=== PATIENT | female | born 1965 | race African-American/Black ===

== ENCOUNTER 2019-05-15 20:41 | Observation (INO) | payer OTHER, SELFPAY ==
--- NOTE | ~2019-05-15 | US_ITS ---
EXAMINATION:US venous doppler LE BI INDICATION:Lymphedema. Calf pain. TECHNIQUE: Multiple grayscale, color flow and Doppler images of the lower extremity deep venous syste ms were obtained and reviewed. COMPARISON:No prior studies for comparison. FINDINGS: The common femoral, profunda femoral femoral and popliteal veins demonstrate normal respira tory variation, augmentation and compressibility. The middistal femoral veins are not visualized due to skin thickening. There is normal flow in the greater saphenous veins. The posterior tibial, perone al and gastrocnemius veins are not visualized. IMPRESSION: 1: No lower extremity deep venous thrombosis. Limited study. Reviewed, dictated and finalized at location A. CULTURE INSPECTOR
[2019-05-15 20:54] VITALS: BP 169/102; PULSE 108; RESP 22; TEMP 36.8; O2SAT 100
--- NOTE | 2019-05-15 21:58 | PC.NURSE ---
PT CONTINUES TO SCREAM IN WAITING ROOM IM IN PAIN HOW MUCH LONGER PT TOLD MULTIPLE TIMES THAT SHE HAS MULTIPLE PEOPLE IN FRONT OF HER. PT CONTINUES TO YELL.
--- NOTE | 2019-05-15 22:37 | PC.NURSE ---
PT FAMILY UP TO DESK REQUESTING PATIENT GET TAKEN TO A ROOM AT THIS TIME.
--- NOTE | 2019-05-15 23:16 | ED.GENADULT ---
HPI - General Adult General Chief complaint: Extremity Injury, Lower <Kenzie Hall PA-C - Last Filed: 05/16/19 02:25> Stated complaint: LEG PAIN <JESÚS Norton Last Filed: 05/16/19 02:25> Time Seen by Provider: 05/15/19 23:16 <JESÚS Norton Last Filed: 05/16/19 02:25> Source: patient and family <JESÚS Norton Last Filed: 05/16/19 02:25> Mode of arrival: ambulatory <JESÚS Norton Last Filed: 05/16/19 02:25> Limitations: no limitations <JESÚS Norton Last Filed: 05/16/19 02:25> History of Present Illness HPI narrative: Pt is here due to extreme pain in her lower extremities. Over the past year she has developed significant lymphedema, the left leg more so than the right. There is significant lichenfication of both lower legs and feet. She states that the pain is such that she can no longer stand or walk. She was working until a couple months ago. She has been seen by vendor specialist at [facility], she has had venous dopplers done by them and ruled out DVT. She has an appointment with the lymphedema clinic here, she has another appointment with them on May 27. She has been taking Ibuprofen for the pain. She describes the pain as electric . There is also intermittent weeping of the left calf. <JESÚS Norton Last Filed: 05/16/19 02:25> Onset (ago): month(s) (more severe in the past week.) <JESÚS Norton Last Filed: 05/16/19 02:25> Location: lower extremity (bilat) <JESÚS Norton Last Filed: 05/16/19 02:25> Radiation: non-radiation <JESÚS Norton Last Filed: 05/16/19 02:25> Quality: burning <JESÚS Norton Last Filed: 05/16/19 02:25> Pain Consistency: constant <Kenzie Hall PA-C - Last Filed: 05/16/19 02:25> Relieving factors: none <Kenzie Hall PA-C - Last Filed: 05/16/19 02:25> Exacerbating factors: movement <Kenzie Hall PA-C - Last Filed: 05/16/19 02:25> Associated symptoms: denies other symptoms <Kenzie Hall PA-C - Last Filed: 05/16/19 02:25> Treatments prior to arrival: NSAID <Kenzie Hall PA-C - Last Filed: 05/16/19 02:25> Related Data Home medications: Home Medications Medication Instructions Recorded Confirmed metoprolol tartrate 50 mg tablet 50 mg PO Q12H 03/10/19 <Kenzie Hall PA-C - Last Filed: 05/16/19 02:25> Allergies/adverse reactions: Allergies Allergy/AdvReac Type Severity Reaction Status Date / Time lisinopril Allergy Unknown Unknown Verified 03/28/19 09:39 naproxen Allergy Unknown Unknown Verified 03/28/19 09:39 prednisone Allergy Unknown Unknown Verified 03/28/19 09:39 <Kenzie Hall PA-C - Last Filed: 05/16/19 02:25> Review of Systems Review of Systems: All systems reviewed & are unremarkable except as noted in HPI and below <Kenzie Hall PA-C - Last Filed: 05/16/19 02:25> [facility] Family History Family History: Family History Grandparent Family history of bronchitis Family history of coronary artery disease Mother Hypertension, Onset Age: 71 Family history of diabetes mellitus in first degree relative Patient's mother is in good health Family history of Alzheimer's disease, Onset Age: 71 Diabetes mellitus, Onset Age: 71 Father Family history unknown Other Asthma <Kenzie Hall PA-C - Last Filed: 05/16/19 02:25> Social History Social History: Social History Smoking status: Never smoker Second hand tobacco smoke exposure: No Alcohol intake: never Gender identity (if verbalized by the patient): Female <Kenzie Hall PA-C - Last Filed: 05/16/19 02:25> Exam Const: General: no acute distress and alert <Kenzie Hall PA-C - Last Filed: 05/16/19 02:25> Orientation/consciousness: p
[2019-05-16] VITALS (8 sets, daily range): BP systolic 122–195; BP diastolic 50–88; PULSE 92–117; RESP 17–20; TEMP 36.3–37.6; O2SAT 99–101; BMI 70.1
[2019-05-16 00:55] LABS: Basophils Percent Auto 0.4 % (0.2-1.2); Eosinophils Absolute Auto 0.4 K/mm3 (0-0.3); Eosinophils Percent Auto 3.7 % (0-4.4); Hematocrit 40.5 % (37.0-47.0); Hemoglobin 12.1 g/dL (12.0-15.0); Immature Granulocyte Absolute 0.03 K/mm3 (0.00-0.031); Immature Granulocyte Percent A 0.3 % (0-0.5); Lymphocytes Absolute Auto 1.84 K/mm3 (0.9-3.2); Lymphocytes Percent Auto 16.3 % (18.3-44.2); Mean Corpuscular HGB Conc 29.9 g/dl (32-36); Mean Corpuscular Hemoglobin 24.7 pg (26-34); Mean Corpuscular Volume 82.8 fl (80-100); Mean Platelet Volume 10.6 fl (7.4-10.4); Monocytes Absolute Auto 0.6 K/mm3 (0.1-0.6); Monocytes Percent Auto 5.7 % (2.6-8.5); Neutrophils Absolute Auto 8.4 K/mm3 (1.3-6.7); Neutrophils Percent Auto 73.6 % (45.5-73.1); Platelet Count Result 344 k/mm3 (150-375); Red Blood Count 4.89 M/mm3 (4.2-5.4); Red Cell Distribution Width 13.9 % (11.5-14.5); White Blood Count 11.3 K/mm3 (4.5-10.0)
[2019-05-16 01:06] LABS: Blood Urea Nitrogen 9 mg/dL (7-17); Carbon Dioxide 27 mmol/L (22-30); Chloride 105 mmol/L (98-107); Estimated CRCL calculation 162 ml/min; Estimated Glomerular Filt Rate > 60; Glucose 102 mg/dL (65-105); Potassium 3.3 mmol/L (3.4-5.0); Sodium 142 mmol/L (137-145)
--- NOTE | 2019-05-16 04:32 | ADMGEN ---
This patient, Dulce Maria Brush, was admitted to [facility] Room 309-01. Patient/family oriented to hospital policies and general routines including ID bracelet, bed and alarms, visiting hours, pain management, procedures, bathroom and other care routines, personal items, smoking policy, room service/diet, and visiting hours. Valuables list has been completed. Information on how to activate the Rapid Response Team has been discussed. Patient/Family are encouraged to report perceived risks to care and to ask questions if they do not understand what they are told or what they should do.
[2019-05-16 07:38] LABS: Glucose Point of Care 132 (65-105)
[2019-05-16] MEDS: glyBURIDE 5 MG TABLET 10 MG PO ×2 (08:49→17:21)
[2019-05-16] MEDS: POTASSIUM CHLORIDE 20 MEQ TABLET 40 MEQ PO (08:49)
[2019-05-16] MEDS: hydroCHLOROthiazide 25 MG TABLET PO (08:49)
[2019-05-16] MEDS: metFORMIN HCL 500 MG TABLET 1000 MG PO (08:49)
[2019-05-16] MEDS: METOPROLOL TARTRATE 50 MG TAB PO ×2 (08:51→21:05)
--- NOTE | 2019-05-16 08:56 | PM.IMHP ---
H&P: HPI History of Present Illness Chief complaint: LYMPHEDEMA Narrative: Dulce Maria Brush is a 53 year old female with history of chronic b/l lower extremity lymphedema with skin changes in both legs (left more than right), hypertension, anxiety and DMII who presented to the ED on 05/15 with complaints of worsening lower extremity pain. Patient states her lower extremity swelling started several years ago, off an on, but last year, it progressively worsened. She saw her primary in 02/2019 for worsened lymphedema and pain and was subsequently sent to [facility] for further input on lymphedema. From there, she was sent to a mental health program specialist, and while there, patient was told that there was no wound to treat. She states that she was set up with a lymphedema specialist and had an appointment yesterday but it was rescheduled to 05/27 due to staffing issues. She had also seen a activity specialist for her pain which she describes as sharp and shooting pain in her feet and legs which she thought was neuropathic pain from her diabetes. States the activity specialist told felt that this was mainly due to lymphedema and not neuropathy and did not prescribe any medication. Her pain has progressively worsened over the past several weeks to a point yesterday that she could not even stand or walk on her feet (she normally ambulates without a walker). She rated the pain a 10/10 at its worse, 9/10 today after pain medication but states the pain is significantly better today with the [place] pain medication prescribed by the ED. While in the ED, patient reports she was told that she will be given antibiotics and have the lymphedema clinic consulted here to see her. Patient states she has difficulty ambulating recently due to pain and with worsening lymphedema. She has tried ibuprofen and Tylenol both with no relief. Ambulation/moving extremities makes pain worse. Otherwise, patient has no other complaints. Denies f/c/ns, headaches, dizziness, lightheadedness, changes in v/h, cp/palpitations, sob/cough, n/v/d/c, abd pain, dysphagia, melena, brbpr, dysuria, hematuria, cloudy urine, s/sx of stroke Review of Systems Review of Systems: All systems reviewed & are unremarkable except as noted in HPI and below [facility] Past Medical History Medical History (Updated 05/16/19 @ 09:56 by Vini Desir PA-C) Anxiety Diabetes Hiatal hernia HTN (hypertension) Left calcaneal fracture Morbid obesity Vitamin D deficiency Surgical History Surgical History History of x2 Family History Family History Grandparent Family history of bronchitis Family history of coronary artery disease Mother Hypertension, Onset Age: 71 Family history of diabetes mellitus in first degree relative Patient's mother is in good health Family history of Alzheimer's disease, Onset Age: 71 Diabetes mellitus, Onset Age: 71 Father Family history unknown Other Asthma Social History Social History Social History: Patient lives at home with her 2 children. She lists her aunt, Debbie, as her surrogate MDM. She wishes to be a Full Code. Her PCP is Dr. Márquez. She has been limited in work due to her worsening lymphedema/pain Smoking status: Never smoker Second hand tobacco smoke exposure: No Alcohol intake: never Substance use: never Gender identity (if verbalized by the patient): Female Spiritual care concerns: No Agree to blood products: Yes Meds Home Medications and Allergies Home Medications Medication Instructions Recorded Confirmed Type glyburide 5 mg tablet 10 mg PO BID #360 tablet 02/18/19 05/16/19 Rx metformin 1,000 mg tablet 1,000 mg PO BID #180 tablet 02/25/19 05/16/19 Rx metoprolol tartrate 50 mg tablet 50 mg PO Q12H 03/10/19 05/16/19 History medroxyprogesteron
[2019-05-16] MEDS: TOLNAFTATE 1% POWDER 45 GM BTL 1 APPLIC TOPICAL ×4 (11:16→21:07)
[2019-05-16] MEDS: ENOXAPARIN 40 MG/0.4 ML SYRINGE SUB-Q (11:17)
[2019-05-16 12:20] LABS: Glucose Point of Care 134 (65-105)
[2019-05-16] MEDS: LACTIC ACID 12% LOTION 225 BTL 1 APPLIC TOPICAL (13:03)
[2019-05-16] MEDS: GABAPENTIN 300 MG CAPSULE PO ×2 (13:11→21:05)
[2019-05-16 17:29] LABS: Glucose Point of Care 90 (65-105)
[2019-05-16 21:46] LABS: Glucose Point of Care 117 (65-105)
[2019-05-17] MEDS: GABAPENTIN 300 MG CAPSULE PO ×3 (05:57→20:43)
[2019-05-17 06:00] VITALS: BP 112/57; PULSE 100; RESP 20; TEMP 36.9; O2SAT 97
[2019-05-17 06:30] LABS: Basophils Percent Auto 0.2 % (0.2-1.2); Eosinophils Absolute Auto 0.2 K/mm3 (0-0.3); Eosinophils Percent Auto 2.7 % (0-4.4); Hematocrit 36.1 % (37.0-47.0); Hemoglobin 10.8 g/dL (12.0-15.0); Immature Granulocyte Absolute 0.03 K/mm3 (0.00-0.031); Immature Granulocyte Percent A 0.4 % (0-0.5); Lymphocytes Absolute Auto 2.47 K/mm3 (0.9-3.2); Lymphocytes Percent Auto 30.8 % (18.3-44.2); Mean Corpuscular HGB Conc 29.9 g/dl (32-36); Mean Corpuscular Hemoglobin 24.9 pg (26-34); Mean Corpuscular Volume 83.2 fl (80-100); Mean Platelet Volume 10.5 fl (7.4-10.4); Monocytes Absolute Auto 0.6 K/mm3 (0.1-0.6); Monocytes Percent Auto 7.9 % (2.6-8.5); Neutrophils Absolute Auto 4.6 K/mm3 (1.3-6.7); Platelet Count Result 311 k/mm3 (150-375); Red Blood Count 4.34 M/mm3 (4.2-5.4)
[2019-05-17 06:48] LABS: Blood Urea Nitrogen 7 mg/dL (7-17); Calcium 8.3 mg/dL (8.4-10.2); Carbon Dioxide 27 mmol/L (22-30); Chloride 105 mmol/L (98-107); Estimated CRCL calculation 187 ml/min; Estimated Glomerular Filt Rate > 60; Glucose 84 mg/dL (65-105); Potassium 3.4 mmol/L (3.4-5.0); Sodium 138 mmol/L (137-145)
[2019-05-17 07:16] LABS: Glucose Point of Care 80 (65-105)
[2019-05-17] MEDS: TOLNAFTATE 1% POWDER 45 GM BTL 1 APPLIC TOPICAL ×4 (09:00→20:46)
[2019-05-17 09:33] VITALS: BP 142/62; PULSE 104; RESP 18; O2SAT 97
[2019-05-17] MEDS: POTASSIUM CHLORIDE 20 MEQ TABLET 40 MEQ PO (09:36)
[2019-05-17 09:37] VITALS: PULSE 104
[2019-05-17] MEDS: hydroCHLOROthiazide 25 MG TABLET PO (09:37)
[2019-05-17] MEDS: glyBURIDE 5 MG TABLET 10 MG PO ×2 (09:37→18:24)
[2019-05-17] MEDS: ENOXAPARIN 40 MG/0.4 ML SYRINGE SUB-Q (09:37)
[2019-05-17] MEDS: METOPROLOL TARTRATE 50 MG TAB PO ×2 (09:37→20:43)
[2019-05-17 12:25] LABS: Glucose Point of Care 90 (65-105)
[2019-05-17 14:00] VITALS: BP 154/57; PULSE 101; RESP 18; TEMP 37.5; O2SAT 95
[2019-05-17] MEDS: LACTIC ACID 12% LOTION 225 BTL 1 APPLIC TOPICAL (14:32)
--- NOTE | 2019-05-17 15:44 | PM.IMPN ---
Progress Note: A&P Assessment and Plan (1) Lymphedema of both lower extremities: Code(s): I89.0 - Lymphedema, not elsewhere classified Status: Acute Assessment and Plan: With severe hyperkeratosis of skin of lower legs to feet. Severe pain with ambulation upon arrival, but this has been improved with Gabapentin per patient; able to tolerate standing with PT/OT today; she believes there is improvement. I do not believe there is an underlying bacterial infection. Possible fungal infection. Afebrile and mild leukocytosis resolved wtih WBC to 8.0k today. BC negative to date Wound Care consulted and greatly appreciate input. Lac-hydrin and tolnaftate powder ordered per Wound Care Continue gabapentin as this seems to be helping with pain. Will put in discharge orders tonight as I believe she is medically stable for discharge, however, there are psychosocial issues delaying discharge. Will follow patient tomorrow if still here Follow up with PCP and lymphedema clinic (2) HTN (hypertension): Qualifiers: Hypertension type: essential hypertension Qualified Code(s): I10 - Essential (primary) hypertension Code(s): I10 - Essential (primary) hypertension Status: Acute Assessment and Plan: BP 140s sys this morning. Monitor closely Continue home medication hydralazine PRN with parameters (3) Diabetes: Code(s): E11.9 - Type 2 diabetes mellitus without complications Status: Acute Assessment and Plan: BGL low 80-90s today. Continue home glyburide Hold metformin for now correctional insulin, hypoglycemia protocol, and ACHS accuchecks Monitor (4) Hypokalemia: Code(s): E87.6 - Hypokalemia Status: Acute Assessment and Plan: K is 3.4 today. Potassium replaced. No cp/palpitations Trend tomorrow Will consider discharging with potassium supplement Subjective Date/time seen: 05/17/19 15:44 Interval history: Patient is a 53 yo F with history of chronic b/l lower extremity lymphedema with skin changes in both legs (left more than right), hypertension, anxiety and DMII here for treatment of hyperkeratosis, severe lower leg pain 2/2 chronic lymphedema. Patient is doing better today. She states the gabapentin is helping with her pain. She states her swelling is also improving with the HCTZ. She thinks the lac-hydrin is helping with the hyperkeratosis as well. She is not back to baseline, but was able to stand up today with PT/OT. She reports a dry cough today. Otherwise no complaints. Denies f/c/ns, headaches, dizziness, lightheadedness, changes in v/h, cp/palpitations, sob, n/v/d/c, abd pain, dysphagia, melena, brbpr, dysuria, hematuria, cloudy urine, s/sx of stroke Review of Systems Review of Systems: All systems reviewed & are unremarkable except as noted in HPI and below Exam Narrative: Exam Narrative: Patient lying in semi-escobar's position at time of visit Const: General: comfortable, no acute distress, well developed and alert Orientation/consciousness: patient oriented x3 HENMT: Head: normocephalic and atraumatic General nose exam: Normal external nose present Face and sinus: face symmetric Mouth: Yes lip normal and Yes moist mucous membranes Throat: posterior oropharynx normal and uvula midline Eyes: General: appearance normal, both eyes and all related structures Sclera: sclerae normal Pupils: Equal, round and reactive pupils present EOM: EOMs intact bilaterally Neck: Neck: trachea midline and supple Resp: Effort & Inspection: normal respiratory effort Auscultation: clear to auscultation bilaterally Cardio: Rate: tachycardic Rhythm: regular rhythm GI: Inspection: non-distended and obesity Auscultation: normal bowel sounds and normoactive bowel sounds Skin: Other: Severe hyper
[2019-05-17 16:56] LABS: Glucose Point of Care 97 (65-105)
--- NOTE | 2019-05-17 17:50 | PM.DS ---
DS: Diagnosis Admitting Diagnosis Admitting Diagnosis: Lymphedema, not elsewhere classified Discharge Diagnosis (1) Lymphedema of both lower extremities: Code(s): I89.0 - Lymphedema, not elsewhere classified Status: Acute Assessment and Plan: With severe hyperkeratosis of skin of lower legs to feet. Severe pain with ambulation upon arrival, but this has been improved with Gabapentin per patient; able to tolerate standing with PT/OT today; she believes there is improvement. I do not believe there is an underlying bacterial infection. Possible fungal infection. Afebrile and mild leukocytosis resolved with WBC to 6.8k today. BC negative to date. Venous Doppler today are negative Wound Care consulted and greatly appreciate input. Lac-hydrin and tolnaftate powder ordered per Wound Care Continue gabapentin as this seems to be helping with pain. Social issues delaying discharge Follow up with PCP and lymphedema clinic (2) HTN (hypertension): Qualifiers: Hypertension type: essential hypertension Qualified Code(s): I10 - Essential (primary) hypertension Code(s): I10 - Essential (primary) hypertension Status: Acute Assessment and Plan: BP 140s sys this morning. Monitor closely Continue home medication hydralazine PRN with parameters (3) Diabetes: Code(s): E11.9 - Type 2 diabetes mellitus without complications Status: Acute Assessment and Plan: BGL low 80-90s today. Continue home glyburide Resume metformin correctional insulin, hypoglycemia protocol, and ACHS accuchecks during stay (4) Hypokalemia: Code(s): E87.6 - Hypokalemia Status: Acute Assessment and Plan: K is 3.4 today. Potassium replaced. No cp/palpitations Discharge with potassium supplement BMP in 1 week f/u with PCP (5) Discharge planning issues: Code(s): Z02.9 - Encounter for administrative examinations, unspecified Status: Acute Assessment and Plan: I believe patient is medically stable for discharge home with HH. Patient did not wish to return home yesterday as she had no one to help at home. Spoke with CC and she will be having HH on Sunday. DS: Summary Hospital Course Reason for hospitalization: Evaluation for worsened pain with lymphedema; r/o cellulitis Date of Discharge is 05/18/19 at roughly 15:45 Hospital Course: Patient is a 53 yo F with history of chornic LE lymphedema with skin changes in both legs (left more than right), hypertension, anxiety and DMII who presented to the ED on 05/15 with complaints of worsening lower extremity pain. Patient was to have an appointment at the lymphedema clinic on 05/27, but was unable to tolerate the pain long enough to make it to the clinic. Her pain was sharp and shooting and in her feet and legs. In the ED, there was concern for infection/cellulitis. Hyperkeratosis of skin was noted. Please see H&P for further details. Presenting VS: BP 169/102, HR 108, RR 22, temp 98.2, sat 100% RA Presenting Pertinent labs: WBC 11.3 (05/18 6.8), K 3.3. CBC and BMP otherwise unremarkable. Micro: BC negative to date x 2 as of 05/21 Imagin/2 LE venous Doppler b/l IMPRESSION: 1: No lower extremity deep venous thrombosis. Limited study. ECG: none Patient was admitted to the hospitalist service for further evaluation; Wound care was consulted for further input on skin changes of LE. She was started on Gabapentin 300 mg TID for the pain which she stated helped with the pain. It was felt that the legs were not infected and Wound Care initiatied lac-hydrin ointment for the hyperkeratosis of the LE skin. She was also started on tolnaftate powder and Aloe [place]. Venous Doppler was negative for LE DVT. It was determined that there was not an acute issues for patient to be admitted
[2019-05-17 20:43] VITALS: PULSE 80
[2019-05-17 21:38] VITALS: BP 148/63; PULSE 105; RESP 20; TEMP 36.9; O2SAT 96
[2019-05-18 01:23] LABS: Glucose Point of Care 140 (65-105)
[2019-05-18] MEDS: GABAPENTIN 300 MG CAPSULE PO ×2 (05:26→14:17)
[2019-05-18 06:00] VITALS: BP 151/81; PULSE 96; RESP 20; TEMP 37.1; O2SAT 99
[2019-05-18 06:09] LABS: Basophils Percent Auto 0.3 % (0.2-1.2); Eosinophils Absolute Auto 0.3 K/mm3 (0-0.3); Eosinophils Percent Auto 4.1 % (0-4.4); Hematocrit 34.6 % (37.0-47.0); Hemoglobin 10.4 g/dL (12.0-15.0); Immature Granulocyte Absolute 0.03 K/mm3 (0.00-0.031); Immature Granulocyte Percent A 0.4 % (0-0.5); Lymphocytes Absolute Auto 1.74 K/mm3 (0.9-3.2); Lymphocytes Percent Auto 25.7 % (18.3-44.2); Mean Corpuscular HGB Conc 30.1 g/dl (32-36); Mean Corpuscular Volume 83.2 fl (80-100); Mean Platelet Volume 10.6 fl (7.4-10.4); Monocytes Absolute Auto 0.5 K/mm3 (0.1-0.6); Neutrophils Absolute Auto 4.2 K/mm3 (1.3-6.7); Neutrophils Percent Auto 62.5 % (45.5-73.1); Platelet Count Result 303 k/mm3 (150-375); Red Blood Count 4.16 M/mm3 (4.2-5.4); White Blood Count 6.8 K/mm3 (4.5-10.0)
[2019-05-18 06:23] LABS: Blood Urea Nitrogen 6 mg/dL (7-17); Calcium 8.3 mg/dL (8.4-10.2); Carbon Dioxide 28 mmol/L (22-30); Chloride 103 mmol/L (98-107); Estimated CRCL calculation 221 ml/min; Estimated Glomerular Filt Rate > 60; Glucose 124 mg/dL (65-105); Potassium 3.3 mmol/L (3.4-5.0); Sodium 139 mmol/L (137-145)
[2019-05-18 08:19] LABS: Glucose Point of Care 95 (65-105)
[2019-05-18 08:30] VITALS: BP 147/82; PULSE 95; RESP 18; O2SAT 96
[2019-05-18] MEDS: glyBURIDE 5 MG TABLET 10 MG PO (08:33)
[2019-05-18] MEDS: POTASSIUM CHLORIDE 20 MEQ TABLET 40 MEQ PO (08:33)
[2019-05-18 08:34] VITALS: PULSE 95
[2019-05-18] MEDS: hydroCHLOROthiazide 25 MG TABLET PO (08:34)
[2019-05-18] MEDS: ENOXAPARIN 40 MG/0.4 ML SYRINGE SUB-Q (08:34)
[2019-05-18] MEDS: METOPROLOL TARTRATE 50 MG TAB PO (08:34)
[2019-05-18 11:43] LABS: Glucose Point of Care 135 (65-105)
[2019-05-18] MEDS: TOLNAFTATE 1% POWDER 45 GM BTL 1 APPLIC TOPICAL ×2 (14:17→14:18)
[2019-05-18] MEDS: LACTIC ACID 12% LOTION 225 BTL 1 APPLIC TOPICAL (14:17)
--- NOTE | 2019-05-18 15:42 | PC.NURSE ---
Patient transported home by [facility]. Patient's IV was removed, home medication returned, patients discharge instructions discussed with patient and the patient verbalized understanding. Patient refused flu shot upon discharge.
--- NOTE | 2019-05-18 15:46 | PC.NURSE ---
Discharge instructions faxed to home health facility.
== END 2019-05-18 15:25 | disposition home health service (06) ==
LOC: ANHED 05-16 02:21 → ANH3MEDSUR 05-16 03:00
PROVIDERS: Physician Assistant; Admitting Provider Family Medicine; Emergency Provider Emergency Medicine; PCP Internal Medicine; Visit Provider Internal Medicine
DX: I89.0 Lymphedema, not elsewhere classified (principal); M79.669 Pain in unspecified lower leg; L85.9 Epidermal thickening, unspecified; I10 Essential (primary) hypertension; E11.9 Type 2 diabetes mellitus without complications; E87.6 Hypokalemia; F41.9 Anxiety disorder, unspecified; E66.01 Morbid (severe) obesity due to excess calories; Z68.45 Body mass index [BMI] 70 or greater, adult; Z79.84 Long term (current) use of oral hypoglycemic drugs; Z79.899 Other long term (current) drug therapy
CPT/HCPCS: 36415; 80048; 83735; 85025; 87040; 93970; 96372; 97110; 97162; 97166; 97530; 99285; A9270; G0378; G0379; J1650

== ENCOUNTER 2019-06-02 10:31 | Emergency (ER) | payer OTHER, SELFPAY ==
[2019-06-02] VITALS (9 sets, daily range): BP systolic 130–174; BP diastolic 63–87; PULSE 80–102; RESP 16–20; TEMP 36.4–37.6; O2SAT 97–100; BMI 10.0
--- NOTE | ~2019-06-02 | XR_ITS ---
XR knee LT min 4V 06/02/2019 14:50 Indication: Left knee pain Procedure: 4 views left knee Comparison: No prior studies for comparison. Findings: Severe osteoarthritis of the left knee. No acute fracture or traumatic malalignment. No sig nificant joint effusion. No radiopaque foreign bodies. There is diffuse subcutaneous edema. Impression: 1: Severe tricompartment osteoarthritis of the left knee. Reviewed, dictated and finalized at location A. GRAVURE PRESS OPERATOR Impression: 1: Severe tricompartment osteoarthritis of the left knee.
--- NOTE | 2019-06-02 12:17 | ED_ITS ---
I attest that this documentation has been prepared under the direction and in the presence of Verena Pradhan MD. Richard HendricksonJosh 06/02/19;12:17 HPI - General Adult General Chief complaint: Unspecified Stated complaint: unable to walk Time Seen by Provider: 06/02/19 12:08 Source: patient and RN notes reviewed Mode of arrival: wheelchair Limitations: no limitations History of Present Illness HPI narrative: prescriebd gabapentin and [facility] got used to medication, didnt feel the pain in feet anymore Related Data Home Medications Medication Instructions Recorded Confirmed metoprolol tartrate 50 mg tablet 50 mg PO Q12H 03/10/19 05/16/19 pregabalin 75 mg PO BID 06/02/19 Allergies Allergy/AdvReac Type Severity Reaction Status Date / Time lisinopril Allergy Unknown Unknown Verified 06/02/19 11:56 naproxen Allergy Unknown Unknown Verified 06/02/19 11:56 prednisone Allergy Unknown Unknown Verified 06/02/19 11:56 [facility] Past Medical History Medical History (Updated 05/17/19 @ 17:50 by Vini Desir PA-C) Anxiety Diabetes Hiatal hernia HTN (hypertension) Left calcaneal fracture Morbid obesity Vitamin D deficiency Surgical History Surgical History History of x2 Social History Social History Social History: Patient lives at home with her 2 children. She lists her aunt, Debbie, as her surrogate MDM. She wishes to be a Full Code. Her PCP is Dr. Márquez. She has been limited in work due to her worsening lymphedema/pain Smoking status: Never smoker Second hand tobacco smoke exposure: No Alcohol intake: never Substance use: never Gender identity (if verbalized by the patient): Female Spiritual care concerns: No Agree to blood products: Yes Course Vital Signs Vital signs: Vital Signs Temperature 37.6 C 06/02/19 10:56 Pulse Rate 89 06/02/19 10:56 Respiratory Rate 18 06/02/19 10:56 Blood Pressure 130/67 06/02/19 10:56 Pulse Oximetry 99 06/02/19 10:56 Temperature 36.4 C 06/02/19 11:52 Pulse Rate 95 06/02/19 11:54 Respiratory Rate 18 06/02/19 11:54 Blood Pressure 174/87 H 06/02/19 11:54 Pulse Oximetry 100 06/02/19 11:54 Medical Decision Making Vital Signs Vital Signs: Vital Signs Temperature 37.6 C 06/02/19 10:56 Pulse Rate 89 06/02/19 10:56 Respiratory Rate 18 06/02/19 10:56 Blood Pressure 130/67 06/02/19 10:56 Pulse Oximetry 99 06/02/19 10:56 Temperature 36.4 C 06/02/19 11:52 Pulse Rate 95 06/02/19 11:54 Respiratory Rate 18 06/02/19 11:54 Blood Pressure 174/87 H 06/02/19 11:54 Pulse Oximetry 100 06/02/19 11:54 Discharge Plan Discharge Prescriptions: No Action metoprolol tartrate 50 mg tablet 50 mg PO Q12H RF: 0 pregabalin 75 mg Capsule 75 mg PO BID RF: 0 potassium chloride 10 mEq tablet extended release 10 meq PO DAILY Qty: 30 RF: 0 gly
--- NOTE | 2019-06-02 12:23 | ED.WEAKNESS ---
HPI - Weakness General Chief complaint: Unspecified Stated complaint: unable to walk Time Seen by Provider: 06/02/19 12:08 Source: patient and RN notes reviewed Mode of arrival: EMS Limitations: no limitations History of Present Illness HPI Narrative: Pt is a 53 y/o black female presenting to the ED via EMS c/o BLE weakness. Pt states she has been experiencing BLE weakness that has led her to be unable to walk. Pt states she was hospitalized at this facility a few weeks ago due to BLE lymphedema and peripheral neuropathy. Pt states she was sent to [facility] where they differed the pt to a Lymphedema clinic. Pt states she was also seen by a Track Laying Supervisor who stated he thought her BLE weakness is due to her Lymphedema vs her peripheral neuropathy. Pt notes she was prescribed Ambler and Gabapentin for her Sx's but states they took her off Gabapentin and prescribed Lyrica last Sunday. Pt notes she was unable to ambulate upon discharge of the hospitals, and states she still heavily relies on her children who she lives with at home for ADL's. Pt notes she is also supposed to be receiving home health assistance but notes she is unable to receive it due to insurance problems. Pt states her BLE swelling and appearance has gotten better after being prescribed diuretics, but notes is still falling when attempting to ambulate and is unable to stand for a short period of time. Pt notes she has been frequently calling her PCP, Dr. Márquez, but notes no progress has been made. Pt states she used to sleep in a recliner but has been unable to get out of it, so she now sleeps propped up in her bed. Pt reports BLE tingling, but denies N/V, SOB, or back pain. Onset (ago): unknown Duration: constant Location: LLE and RLE Associated symptoms: other (BLE swelling; BLE tingling) Related Data Home Medications Medication Instructions Recorded Confirmed metoprolol tartrate 50 mg tablet 50 mg PO Q12H 03/10/19 05/16/19 pregabalin 75 mg PO BID 06/02/19 Allergies Allergy/AdvReac Type Severity Reaction Status Date / Time lisinopril Allergy Unknown Unknown Verified 06/02/19 11:56 naproxen Allergy Unknown Unknown Verified 06/02/19 11:56 prednisone Allergy Unknown Unknown Verified 06/02/19 11:56 Review of Systems Review of Systems: All systems reviewed & are unremarkable except as noted in HPI and below Respiratory: Respiratory: Denies dyspnea Gastrointestinal: Gastrointestinal: Denies nausea and Denies vomiting Musculoskeletal: Musculoskeletal: Denies back pain, Reports muscle weakness (BLE) and Reports tingling (BLE) PMFSH Past Medical History Medical History Anxiety Diabetes Hiatal hernia HTN (hypertension) Left calcaneal fracture Morbid obesity Vitamin D deficiency Surgical History Surgical History History of x2 Family History Family History Grandparent Family history of bronchitis Family history of coronary artery disease Mother Hypertension, Onset Age: 71 Family history of diabetes mellitus in first degree relative Patient's mother is in good health Family history of Alzheimer's disease, Onset Age: 71 Diabetes mellitus, Onset Age: 71 Father Family history unknown Other Asthma Social History Social History Social History: Patient lives at home with her 2 children. She lists her aunt, Debbie, as her surrogate MDM. She wishes to be a Full Code. Her PCP is Dr. Márquez. She has been limited in work due to her worsening lymphedema/pain Smoking status: Never smoker Second hand tobacco smoke exposure: No Alcohol intake: never Substance use: never Gender identity (if verbalized by the patient): Female Spiritual care concerns: No Agree to blood products: Yes Exam Const: General: no acute distress and alert
[2019-06-02 13:07] LABS: Basophils Percent Auto 0.5 % (0.2-1.2); Eosinophils Absolute Auto 0.2 K/mm3 (0-0.3); Hematocrit 40.7 % (37.0-47.0); Hemoglobin 12.1 g/dL (12.0-15.0); Immature Granulocyte Absolute 0.02 K/mm3 (0.00-0.031); Immature Granulocyte Percent A 0.2 % (0-0.5); Lymphocytes Absolute Auto 1.83 K/mm3 (0.9-3.2); Lymphocytes Percent Auto 22.3 % (18.3-44.2); Mean Corpuscular HGB Conc 29.7 g/dl (32-36); Mean Corpuscular Hemoglobin 24.7 pg (26-34); Mean Corpuscular Volume 83.1 fl (80-100); Mean Platelet Volume 10.8 fl (7.4-10.4); Monocytes Absolute Auto 0.5 K/mm3 (0.1-0.6); Monocytes Percent Auto 5.9 % (2.6-8.5); Neutrophils Absolute Auto 5.7 K/mm3 (1.3-6.7); Neutrophils Percent Auto 69.1 % (45.5-73.1); Platelet Count Result 315 k/mm3 (150-375); Red Cell Distribution Width 14.6 % (11.5-14.5); White Blood Count 8.2 K/mm3 (4.5-10.0)
[2019-06-02 13:19] LABS: Alanine Aminotransferase 9 U/L (4-35); Albumin Level 3.9 g/dL (3.5-5.1); Alkaline Phosphatase 65 U/L (38-126); Aspartate Amino Transferase 12 U/L (14-36); Bilirubin,Total 0.5 mg/dL (0.2-1.3); Blood Urea Nitrogen 16 mg/dL (7-17); Calcium 9.1 mg/dL (8.4-10.2); Carbon Dioxide 29 mmol/L (22-30); Chloride 101 mmol/L (98-107); Creatine Kinase 48 U/L (30-135); Estimated CRCL calculation 128 ml/min; Estimated Glomerular Filt Rate > 60; Glucose 153 mg/dL (65-105); Potassium 4.2 mmol/L (3.4-5.0); Sodium 141 mmol/L (137-145)
[2019-06-02 13:26] LABS: Hypochromasia 1+ (NORMAL); Platelet Estimate Adequate (Adequate)
[2019-06-02 13:27] LABS: Target Cells 1+ (NORMAL)
--- NOTE | 2019-06-02 13:35 | PC.NURSE ---
Patient tells me that she is unable to stand or walk. She also tells me that she can not lift her own legs back into the bed.
--- NOTE | 2019-06-02 14:15 | PC.NURSE ---
Patient to radiology at this time
[2019-06-02 14:26] LABS: Add Urine Microscopic? YES; Appearance Urine Clear (Clear); Bacteria Urine Trace /hpf; Bilirubin Urine Negative (Negative); Blood Urine 3+ (Negative); Color Urine Yellow (Yellow); Glucose Urine UA Negative (Negative); Ketones Urine Negative (Negative); Leukocyte Esterase Ur 3+ LEU/UL (Negative); Mucus Urine Rare /lpf; Nitrate Urine Negative (Negative); Protein Urine Negative (Negative); RBC Urine 51-75 /hpf (0-2); Specific Grav Ur 1.027 (1.001-1.035); Squamous Epithelial Cell Urine Occasional /hpf (Few); WBC Urine >75 /hpf
--- NOTE | 2019-06-02 14:51 | PC.NURSE ---
Letty from CT reports patient is having anxiety with her CT scan and would like something for it. EDP aware, no orders. CT informed.
--- NOTE | 2019-06-02 15:27 | PC.NURSE ---
Patient back in room. EDP has spoke with patient and care coordination is now speaking with patient about placement in assisted.
--- NOTE | 2019-06-02 17:43 | PC.NURSE ---
Patient updated by care coordination. She is aware we are waiting for [facility]ber to call us after they receive the bariatric bed. Meal ordered at this time as well.
--- NOTE | 2019-06-02 20:31 | PC.NURSE ---
called pharmacy about pt's lyrica left message.
[2019-06-02] MEDS: METOPROLOL TARTRATE 50 MG TAB PO (20:36)
--- NOTE | 2019-06-02 20:55 | PC.NURSE ---
called house officer for hospital bed for patient.
--- NOTE | 2019-06-02 21:01 | PC.NURSE ---
Pharmacy called about [place], they are currently making IV medication for ICU then will send medication.
[2019-06-02] MEDS: PREGABALIN 75 MG CAPSULE PO (21:37)
--- NOTE | 2019-06-02 21:39 | PC.NURSE ---
Pt. transferred to new bed for better comfort. Able to ambulate with two assist.
[2019-06-03 00:33] VITALS: BP 130/60; PULSE 94; RESP 18; O2SAT 97
[2019-06-03 06:27] VITALS: BP 147/94; PULSE 92; RESP 18; TEMP 36.9; O2SAT 96
[2019-06-03 07:42] VITALS: BP 124/68; PULSE 90; RESP 16; TEMP 37.1; O2SAT 98
--- NOTE | 2019-06-03 08:27 | PCCCNOTE ---
Late entry: Met with pt last evening to discuss home needs. Pt states that she is unable to care for herself and her children cannot provide assistance. Pt states she cannot ambulate and and at this time would like to be placed inro a usp. I provided pt with the list of [facility] approved facilities, the only one in her area was [facility]. Pt refused this center her uncle is there and she does not wish to go there. Pt requested [facility]. A call was placed to [facility] in [place], I spoke to Roni. He stated that yes he could take [facility], and yes he has a female room, but due to the pt's size he would need to get a bariatric bed delivered. Pt was notified that she would be able to go to [facility] and equipment needs. later, Roni called back and informed me that [facility] [employer] was unable to authorize the pt to come to [facility]. Call placed to [facility] regarding auth. I was told that the auth would be expedited in the AM. Pt to spend the night and DC to [facility] in the AM as soon an auth is available. Pt has been accepted to [facility] pending auth. All referral datea has been faxed/recieved by SNF.
[2019-06-03] MEDS: PREGABALIN 75 MG CAPSULE PO (09:37)
[2019-06-03 09:38] VITALS: BP 107/43; PULSE 96; RESP 16; O2SAT 97
--- NOTE | 2019-06-03 11:36 | PCCCNOTE ---
Call placed to [facility] this am. No auth in system . Called [facility]. They had not received an auth at this time. Call placed to [facility], spoke to Merly. She states the [facility] is in network with them an a prior auth is not needed. José Mendez RN met with pt to discuss going to [facility] instead of [facility]. Pt is in agreement and medical referral sent to [facility], awaiting verification and acceptance of pt. Pt should be able to dc to that facility shortly.
--- NOTE | 2019-06-03 13:04 | PC.NURSE ---
[facility] and gave report. Facility aware that EMS called for the transfer already. Pt aware they are going to take her to the facility
== END 2019-06-03 18:24 ==
PROVIDERS: General Practice; Emergency Provider Emergency Medicine; PCP Internal Medicine
DX: I89.0 Lymphedema, not elsewhere classified (principal); N39.0 Urinary tract infection, site not specified; E11.42 Type 2 diabetes mellitus with diabetic polyneuropathy; I10 Essential (primary) hypertension; E66.01 Morbid (severe) obesity due to excess calories; Z68.42 Body mass index [BMI] 45.0-49.9, adult; E55.9 Vitamin D deficiency, unspecified; M17.12 Unilateral primary osteoarthritis, left knee
CPT/HCPCS: 36415; 73564; 80053; 81001; 82550; 85025; 87086; 97161; 99283; A9270

== ENCOUNTER 2019-06-25 14:00 | Outpatient (RCR) | payer OTHER, SELFPAY ==
--- NOTE | 2019-05-06 11:34 | PTOPEVAL ---
PHYSICAL THERAPY EVALUATION AND PLAN OF CARE 05-06-2019 The PT evaluation was completed for the diagnosis of B LE lymphedema. The plan of treatment is scheduled for 4-5 x/week for 6 weeks. Thank you for referring Dulce Maria to [facility]. Please review, sign, date and return this plan of care ROSA ELENA. I agree with and certify that the following plan of care is medically necessary. Referring Physician Date Attending Provider: Moisés Barron DPM *PT Outpatient Evaluation Start: 05/06/19 09:53 Document 05/06/19 09:45 MADDI (Rec: 05/06/19 11:30 MADDI [email or web address]) Therapy Assessment Status Assessment Status Assessment Status Evaluation Outpatient Past Medical History Neurological History Hx Neurological Disorders No Significant History Cardiovascular History Hx Hypertension Yes: meds control Respiratory History Hx Respiratory Disorders No Significant History Gastrointestinal History Hx Gastrointestinal Disorders No Significant History Genitourinary History Hx Genitourinary Disorders No Significant History Musculoskeletal History Hx Musculoskeletal Disorders No Significant History Hematological History Hx Hematological Disorders No Significant History Endocrine History Hx Diabetes Yes: meds control HEENT History Hx HEENT Disorders No Significant History Other History Hx Other Surgeries Yes: 2 c- sections, ablation uterus; Evaluation Information Problem Diagnosis B LE lymphedema Onset Feb 2019 Subjective Information to hospital, [place] due to Query Text:As Reported By Patient/ increase swelling and pain in Family legs- negative for blood clots Previous Treatments Previous Treatments For This Problem no lymphedema treatments Prior Level of Function Activity Level (Last 3 Months) 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 Hand Dominance Right Activity of Daily Living Ability Needs Some Help Indoor/Home Mobility Needs Some Help Home Setting Home Type House,Single Level Environmental Barriers Stairs, 2-4 Living Situation With Adult Child Support Available Local Family Support Mobility Assistive Devices (Used Last 3 None Months) Bathroom Environment Bathtub, Standard Prior Cognition/Communication Prior Communication Level No Impairment Prior Cognitive Function Able to Function Independently Prior Ability to Handle Finances Independent Comments Additional Prior Level of Function live with 2 children, 23 and Comments 15 year old; they assist with sit to stand; daughter cooks, does chores,
--- NOTE | 2019-05-14 10:48 | PCPTNOTE ---
I called pt on phone to discuss why the delay in the starting of her therapy--that 2 staff will have to work with her and only one was scheduled; She voiced concern over pain and why no one believes her or is giving her any pain meds. to see Dr Márquez tomorrow and hopefully he will give her something for pain. Reinforced with her to continue to do sitting leg exercises--ankle pumps, knee kick and marching, walking as able, to keep blood and lymph fluid moving and keep strength. She stated she would do exercises. Also to call if any questions or concerns prior to her appt here in ~2 weeks.
--- NOTE | 2019-05-27 09:30 | PCPTNOTE ---
pt called and canceled all appointments for this week, stated taking a med that is making her not able to walk going to see her dr and will let us know about next week's appts.
--- NOTE | 2019-05-27 09:31 | PCPTNOTE ---
eval was completed 05-06-19, then submitted for pre authorization to her insurance; received auth for 16 visits to 07-07-19; delayed start of care/scheduling due to pt requires assist of 2 therapist for treatment.
--- NOTE | 2019-06-13 13:12 | PCPTNOTE ---
Patient called & cancelled scheduled appointment this date due to [ in the family]
--- NOTE | 2019-06-20 13:02 | PCPTNOTE ---
Patient called & cancelled scheduled appointment this date due to [no reason given. Wet Chemistry Analyst Cheryl called her back and left a message that this was a reevaluation date and she needs to contact us. ]
--- NOTE | 2019-06-23 13:54 | PCPTNOTE ---
Patient called & cancelled scheduled appointment this date due to car in the shop per real estate legal secretary.
--- NOTE | 2019-06-27 08:21 | PCPTNOTE ---
called pt to see if she could come in early and pt stated she has a fever. Appt.was cancelled.
--- NOTE | 2019-06-30 14:15 | PCPTNOTE ---
Patient called & cancelled scheduled appointment this date due to illness
--- NOTE | 2019-07-02 14:11 | PCPTNOTE ---
Patient called & cancelled scheduled appointment this date due to [ ]illness today and fridays, appointment.
--- NOTE | 2019-07-07 13:00 | PCPTNOTE ---
Patient called & cancelled scheduled appointment this date due to covid 19 and high blood pressure.]
--- NOTE | 2019-07-10 08:20 | PCPTNOTE ---
PHYSICAL THERAPY DISCHARGE 07-10-2019 Attending Provider: Dr Moisés Barron, DPM Patient:Dulce Maria Brush Date of :1965 Ms. Brush has received 5 visits for the diagnosis of B LE lymphedema, from May 06 to June 24. She called and canceled 7 sessions, due to illness. Today, she canceled all appointments due to coronavirus, therefore she will be discharged from therapy at this time. The goals were not assessed. Thank you for Dulce Maria to [facility]. Please review, sign, date and return this discharge summary ROSA ELENA. I have been updated about the patient's current status and I agree with discharge from the above service at this time. Referring Physician Date
== END 2019-07-14 09:32 | disposition home or self-care (01) ==
LOC: ANHPT 14:00
PROVIDERS: PCP Internal Medicine
DX: I89.0 Lymphedema, not elsewhere classified (principal)
CPT/HCPCS: 29581; 97140; 97162

== ENCOUNTER 2022-03-09 17:33 | Inpatient (IN) | payer MEDICARE, MEDICAID, SELFPAY ==
[2022-03-09] VITALS (7 sets, daily range): BP systolic 116–155; BP diastolic 65–89; PULSE 69–107; RESP 16–22; TEMP 36.7–37; O2SAT 99–100; BMI 69.7
--- NOTE | ~2022-03-09 | XR_ITS ---
EXAMINATION: XR chest 2V DATE: 03/09/2022 18:14 INDICATION: Shortness of breath and midsternal chest pain TECHNIQUE: AP and lateral views of the chest were obtained. COMPARISON: Chest radiograph dated 06/24/2018 FINDINGS: Evaluation on the lateral projection is limited by patient body habitus. Mild right infrahilar bronch ial wall thickening without focal airspace opacities. No pleural effusion or pneumothorax. Cardiac me diastinal silhouette is within normal limits for AP technique. IMPRESSION: 1. Mild right infrahilar bronchial wall thickening without focal airspace opacities which could be se en with bronchitis or reactive airway disease/asthma. Reviewed, dictated and finalized at location A. RITY SUPERVISOR IMPRESSION: 1. Mild right infrahilar bronchial wall thickening without focal airspace opaci ties which could be seen with bronchitis or reactive airway disease/asthma.
--- NOTE | 2022-03-09 17:42 | ECG_ITS ---
Measurements Intervals [place] Rate: 103 P: 50 IL: 182 QRS: -1 QRSD: 98 T: 19 QT: 348 QTc: 456 Interpretive Statements SINUS TACHYCARDIA DELAYED PRECORDIAL R/S TRANSITION BASELINE ARTIFACT- III BORDERLINE ECG NO PREVIOUS ECG AVAILABLE FOR COMPARISON Electronically Signed On 03-10-2022 15:58:58 BARROW WORKER HELPER by Elver Beckham D.O.
[2022-03-09 17:55] LABS: Basophils Percent Auto 0.3 % (0.2-1.2); Eosinophils Absolute Auto 0.1 K/mm3 (0-0.3); Hematocrit 43.5 % (37.0-47.0); Hemoglobin 13.2 g/dL (12.0-15.0); Immature Granulocyte Absolute 0.03 K/mm3 (0.00-0.031); Immature Granulocyte Percent A 0.3 % (0-0.5); Immature Platelet Fraction Pct 4.2 % (0.9-11.2); Lymphocytes Absolute Auto 2.59 K/mm3 (0.9-3.2); Lymphocytes Percent Auto 28.9 % (18.3-44.2); Mean Corpuscular HGB Conc 30.3 g/dl (32-36); Mean Corpuscular Hemoglobin 25.1 pg (26-34); Mean Corpuscular Volume 82.7 fl (80-100); Mean Platelet Volume 10.4 fl (7.4-10.4); Monocytes Absolute Auto 0.5 K/mm3 (0.1-0.6); Monocytes Percent Auto 5.6 % (2.6-8.5); Neutrophils Absolute Auto 5.7 K/mm3 (1.3-6.7); Neutrophils Percent Auto 63.9 % (45.5-73.1); Platelet Count Result 313 k/mm3 (150-375); Red Blood Count 5.26 M/mm3 (4.2-5.4); Red Cell Distribution Width 14.6 % (11.5-14.5)
[2022-03-09 18:03] LABS: Alanine Aminotransferase 15 U/L (6-35); Alkaline Phosphatase 95 U/L (38-126); Anion Gap 12 mmol/L (8-16); Aspartate Amino Transferase 25 U/L (14-36); Bilirubin,Total 0.5 mg/dL (0.2-1.3); Blood Urea Nitrogen 9 mg/dL (7-17); Calcium 9.2 mg/dL (8.4-10.2); Carbon Dioxide 27 mmol/L (22-30); Chloride 101 mmol/L (98-107); Estimated CRCL calculation 205 ml/min; Estimated Glomerular Filt Rate > 60; Glucose 253 mg/dL (65-110); Lipase 16 U/L (23-300); Potassium 3.7 mmol/L (3.4-5.0); Sodium 140 mmol/L (137-145)
[2022-03-09 18:05] LABS: INR 1.2; Partial Thromboplastin Time 23.3 SECONDS (22.3-36.8)
[2022-03-09 18:15] LABS: Troponin I < 0.012 ng/mL (0.000-0.034)
--- NOTE | 2022-03-09 20:34 | ED.CHESTPAIN ---
HPI - Chest Pain General Chief Complaint: Chest Pain Stated Complaint: cp Time Seen by Provider: 03/09/22 17:36 History of Present Illness HPI narrative: Patient is a 56-year-old female who presents ER with several different issues. First complaint is that she has been having some shortness of breath and central chest pressure since yesterday. Reports radiation down the left arm. Not describe aggravating or alleviating factors. Reports chronic cough with no recent change. No fevers chills or sweats. Denies wheezing. No history of heart disease. Patient other issue is that she has pain in her left foot and burning. She is concerned that she is developing infection. She has chronic lymphedema with cracking to her feet. She has been unable to walk for the last day due to this pain. No falls or injuries. Related Data Allergies Allergy/AdvReac Type Severity Reaction Status Date / Time lisinopril Allergy Unknown lip Verified 03/09/22 20:14 swelling naproxen Allergy Unknown Hives Verified 03/09/22 20:14 prednisone Allergy Unknown Hives Verified 03/09/22 20:14 Review of Systems Review of Systems: All systems reviewed & are unremarkable except as noted in HPI and below Constitutional: Constitutional: Denies chills and Denies fever(s) ENT: Denies nasal congestion and Denies sore throat Cardiovascular: Cardiovascular: Reports chest pain, Denies rapid heart rate and Reports radiating jaw, neck or arm pain Respiratory: Respiratory: Reports cough, Denies dyspnea and Denies wheezing Gastrointestinal: Gastrointestinal: Denies abdominal pain, Denies nausea and Denies vomiting Musculoskeletal: Musculoskeletal: Denies arthralgias Comments: Left foot pain PMFSH Past Medical History Medical History (Updated 03/09/22 @ 21:27 by Naif Stanford MD) Anxiety Diabetes Hiatal hernia HTN (hypertension) Left calcaneal fracture Morbid obesity Morbid obesity due to excess calories Neuropathy Vitamin D deficiency Surgical History Surgical History History of x2 Family History Family History Grandparent Family history of bronchitis Family history of coronary artery disease Mother Hypertension, Onset Age: 71 Family history of diabetes mellitus in first degree relative Patient's mother is in good health Family history of Alzheimer's disease, Onset Age: 71 Diabetes mellitus, Onset Age: 71 Father Family history unknown Other Asthma Social History Social History Social History: Patient lives at home with her 2 children. She lists her aunt, Debbie, as her surrogate MDM. She wishes to be a Full Code. Her PCP is Dr. Márquez. She has been limited in work due to her worsening lymphedema/pain Smoking status: Never smoker Second hand tobacco smoke exposure: No Alcohol intake: never Substance use: never Gender identity (if verbalized by the patient): Female Spiritual care concerns: No Agree to blood products: Yes Exam Narrative: GENERAL: Well-appearing, morbidly obese, and in no acute distress. HEAD: Normocephalic, atraumatic. EYES: PERRL and EOMI. ENT: Mucous membranes moist. CHEST: Clear to auscultation. No respiratory distress. HEART: Regular rate and rhythm. Normal peripheral pulses. ABDOMEN: Soft, nontender, nondistended. EXTREMITIES: Normal range of motion. No edema. SKIN: Warm, dry, no rash. NEURO: Alert and oriented x3. PSYCH: Normal mood and affect. Course Vital Signs Vital signs: Vital Signs Temperature 98.6 F 03/09/22 17:43 Pulse Rate 107 H 03/09/22 17:43 Respiratory Rate 22 H 03/09/22 17:43 Blood Pressure 146/65 H 03/09/22 17:43 Pulse Oximetry 100 03/09/22 17:43 Oxygen Delivery Room Air 03/09/22 17:43 Temperature 98.6 F 03/09/22 17:43 Pulse Rate
[2022-03-09] MEDS: HYDROcodone/acetaminophen (*CRX) 5-325 MG TABLET 1 TAB PO (21:24)
[2022-03-09 21:29] LABS: Troponin I < 0.012 ng/mL (0.000-0.034)
[2022-03-09 21:43] LABS: Influenza A QL RT-PCR Negative (Negative); Influenza B QL RT-PCR Negative (Negative); SARS-CoV-2 RNA PCR Negative
--- NOTE | 2022-03-09 22:42 | ADMGEN ---
This patient, Dulce Maria Brush, was admitted to IMU Room 200-01. Patient/family oriented to hospital policies and general routines including ID bracelet, bed and alarms, visiting hours, pain management, procedures, bathroom and other care routines, personal items, smoking policy, room service/diet, and visiting hours. Information on how to activate the Rapid Response Team has been discussed. Patient/Family are encouraged to report perceived risks to care and to ask questions if they do not understand what they are told or what they should do.
--- NOTE | 2022-03-09 23:04 | PM.IMHP ---
H&P: HPI History of Present Illness Date/Time: 03/09/22 23:04 Chief Complaint: Foot pain, chest pain Narrative: 56-year-old female with past medical history of super morbid obesity, chronic lymphedema, type 2 diabetes mellitus and hypertension who presented to the ER from home due to foot pain and chest pain. Patient's initial triage notes as the patient arrived for chest pain. The patient states that she actually did not started having chest pain until she became anxious when she realized she was going to have to call for transport to come to ER for her left foot pain. The pain is sharp and is worse with trying to bear weight or with palpation. Pain is severe in intensity. She has not taken any medications for symptoms. She denies any known injury to her foot. She thinks that her legs may be more swollen than her baseline. She denies any actual pain in her leg ankle or thigh. She states that for the last 3-4 days she has been having left foot pain in her heel and in her midfoot. She reports that she had a injury to her foot at work about 4 years and has been disabled since that time. Approximately 2 years ago she was admitted for cellulitis associated with her lymphedema in her left thigh. she used to wear wraps on her lower extremities but has not done so in about a year due to insurance changes. She reports that the pain is associated with a fever up to 102 but she has not had a fever and over 24 hours. She knew she needed to come to the ER yesterday due to the increasing pain and inability to ambulate move around but became anxious when she started thinking about the logistics of that process. After she became anxious she then began having intermittent chest pain in the left lower sternal border pressure-like in nature that radiated up towards her left shoulder. She has not had any significant associated cough but does have occasional cough when she lays down. This is unchanged from her baseline. She denies any nausea vomiting or diarrhea. She denies any recent ill contacts. She does not have a history of coronary artery disease. she checks her glucoses twice daily lay and her glucoses usually run between 140 and 160. She denies history of sleep apnea or snoring. She last saw her primary care physician 6 months ago. She states that since her insurance changed they for St change her primary care physician. She used to see Dr. Ronak Yablonsky but she has not had the chance to set up appointment with her new physician. She reports that until her recent symptoms she was able to ambulate with a walker. She lives alone. She reports that her mobility and functional status has been declining over the last couple of months. Review of Systems Review of Systems: 12 systems were reviewed with pertinent positives and negatives per HPI. Except as documented in the HPI, all other systems were reviewed and are negative. She used to have heavy menses but is now amenorrheic since she had to uterine ablations 15 years ago. she has not had any skin rashes. She has not received flu vaccines or COVID vaccines. [facility] Past Medical History Medical History (Updated 03/09/22 @ 23:23 by Estefany Kat DO) Anxiety Body mass index [BMI] 60.0-69.9, adult Diabetic peripheral neuropathy Elephantiasis nostras verrucosa bilateral Essential hypertension Hiatal hernia Left calcaneal fracture Type 2 diabetes mellitus Vitamin D deficiency Surgical History Surgical History (Updated 03/09/22 @ 23:23 by Estefany Kat DO) History of x2 Status post hysteroscopic ablation of endometrium (~2006) Family History Family History Grandparent Family history of bronchitis Family history of coronary artery disease Mother Hypertension, Onset Age: 71 Family history of diabetes mellitus in first degree relative Patient's mother is in good health Family hi
[2022-03-10] VITALS (12 sets, daily range): BP systolic 134–149; BP diastolic 51–78; PULSE 72–104; RESP 16–20; TEMP 35.7–36.6; O2SAT 97–99
[2022-03-10 00:28] LABS: CRP 5.1 mg/dL (<1.0)
[2022-03-10 00:37] LABS: Troponin I < 0.012 ng/mL (0.000-0.034)
[2022-03-10] MEDS: METOPROLOL TARTRATE 50 MG TAB PO ×3 (00:37→20:48)
[2022-03-10 01:05] LABS: Erythrocyte Sedimentation Rate 95 mm/hr (0-20)
[2022-03-10 06:03] LABS: Basophils Percent Auto 0.3 % (0.2-1.2); Eosinophils Absolute Auto 0.2 K/mm3 (0-0.3); Eosinophils Percent Auto 2.4 % (0-4.4); Hemoglobin 11.2 g/dL (12.0-15.0); Immature Granulocyte Absolute 0.03 K/mm3 (0.00-0.031); Immature Granulocyte Percent A 0.4 % (0-0.5); Lymphocytes Absolute Auto 2.04 K/mm3 (0.9-3.2); Lymphocytes Percent Auto 25.8 % (18.3-44.2); Mean Corpuscular HGB Conc 29.5 g/dl (32-36); Mean Corpuscular Hemoglobin 24.7 pg (26-34); Mean Corpuscular Volume 83.7 fl (80-100); Mean Platelet Volume 10.3 fl (7.4-10.4); Monocytes Absolute Auto 0.7 K/mm3 (0.1-0.6); Monocytes Percent Auto 8.8 % (2.6-8.5); Neutrophils Absolute Auto 4.9 K/mm3 (1.3-6.7); Neutrophils Percent Auto 62.3 % (45.5-73.1); Platelet Count Result 290 k/mm3 (150-375); Red Blood Count 4.54 M/mm3 (4.2-5.4); Red Cell Distribution Width 14.5 % (11.5-14.5); White Blood Count 7.9 K/mm3 (4.5-10.0)
[2022-03-10 06:06] LABS: Anion Gap 7 mmol/L (8-16); Blood Urea Nitrogen 8 mg/dL (7-17); Calcium 8.5 mg/dL (8.4-10.2); Carbon Dioxide 29 mmol/L (22-30); Chloride 103 mmol/L (98-107); Estimated CRCL calculation 206 ml/min; Estimated Glomerular Filt Rate > 60; Glucose 232 mg/dL (65-110); Potassium 3.4 mmol/L (3.4-5.0); Sodium 139 mmol/L (137-145)
[2022-03-10 08:55] LABS: Glucose Point of Care 236 mg/dl (65-105)
[2022-03-10] MEDS: SERTRALINE HCL 50 MG TABLET 100 MG PO (09:03)
[2022-03-10] MEDS: glyBURIDE 5 MG TABLET PO ×2 (09:03→18:13)
[2022-03-10] MEDS: hydroCHLOROthiazide 25 MG TABLET PO (09:03)
[2022-03-10] MEDS: ENOXAPARIN 40 MG/0.4 ML SYRINGE SUB-Q ×2 (09:03→20:47)
[2022-03-10] MEDS: INSULIN ASPART (*BKC) 100 UNITS/ML SUB-Q ×2 (09:04→12:55)
[2022-03-10] MEDS: PREGABALIN (*CRX) 50 MG CAPSULE 100 MG PO ×2 (09:08→18:13)
[2022-03-10] MEDS: HYDROcodone/acetaminophen (*CRX) 5-325 MG TABLET 1 TAB PO ×2 (09:10→15:58)
[2022-03-10 09:27] LABS: Hemoglobin A1C 9.6 % (<5.7)
--- NOTE | 2022-03-10 10:12 | PM.IMPN ---
Progress Note: A&P Assessment and Plan (1) Wound of foot: Code(s): S91.309A - Unspecified open wound, unspecified foot, initial encounter Status: Acute Assessment and Plan: Given the patient's report of fever of 102 at home and associated tissue changes in the patient's foot there is concern for ulcer. Unfortunately patient is too large to be placed on the CT table for imaging of her foot. consult General surgery for recommendations and possible debridement. Will obtain blood cultures and place patient on antibiotic therapy with Zosyn. wound care nurse consulted. (2) Type 2 diabetes mellitus with hyperglycemia, without long-term current use of insulin: Code(s): E11.65 - Type 2 diabetes mellitus with hyperglycemia Status: Acute Assessment and Plan: continue patient's home glyburide and metformin. Will place patient on moderate sliding scale insulin Accu-Cheks a.c. HS. Diet has been changed to consistent carbohydrate. Hypoglycemia protocol has been ordered as needed. (3) Chest pain: Code(s): R07.9 - Chest pain, unspecified Status: Acute Assessment and Plan: the patient's chest pain seems atypical. (4) Elephantiasis nostras verrucosa: Code(s): I89.0 - Lymphedema, not elsewhere classified Status: Acute Assessment and Plan: management as above # 1. (5) Body mass index [BMI] 60.0-69.9, adult: Code(s): Z68.44 - Body mass index [BMI] 60.0-69.9, adult Status: Acute Assessment and Plan: Patient would benefit from diet and lifestyle modification and should consider bariatric surgery for any realistic option of long-term weight loss. (6) Anxiety: Code(s): F41.9 - Anxiety disorder, unspecified Status: Acute Assessment and Plan: Likely contributing to the patient's reports of chest pain. Will continue with reassurance and sertraline. Subjective Date/time seen: 03/10/22 10:12 no chest pain, shortness of breath Review of Systems Review of Systems: 12 systems were reviewed with pertinent positives and negatives per HPI. Except as documented in the HPI, all other systems were reviewed and are negative. Exam Narrative: weight 208 kg BMI 69.7 Const: Other: morbidly obese, no acute distress HENMT: Other: no posterior oral pharyngeal crowding, no oral pharyngeal erythema, mucous membranes are moist, good dentition Eyes: Other: pupils are equal and reactive, no scleral icterus, no conjunctival pallor Neck: Other: large neck circumference, no anterior cervical lymphadenopathy, trachea midline Resp: Other: clear to auscultation bilaterally, no increased work of breathing Cardio: Other: regular rate rhythm, no murmurs, 2+ bilateral radial pulses pedal pulses difficult to assess due to patient has elephantiasis GI: Other: soft, obese, nontender, normoactive bowel sounds : Other: continent of urine, no rashes in pannus folds or inguinal folds that could be visualized with patient positioning Skin: Other: elephantiasis with thickened coupled skin of bilateral lower extremities extending up through the thigh bilaterally left worse than right Neuro: Other: alert oriented, speech is clear, no facial asymmetry, no localizing neurologic deficits noted during the course of casual conversation Extrem: Other: chronic lymphedema with associated elephantiasis bilateral lower extremities, tenderness to left calcaneus extending down through the midfoot with the majority of the tenderness in the midfoot with associated tissue changes that feels almost fluctuant in nature but exam is limited due to the patient's overlying thickened skin associated with her elevated phthisis Psych: Other: appropriate mood and affect, anxious, pleasant and cooperative Objective Data Vital Signs Vital Signs: Vital Signs - 24 hr 03/09/22 17:43 03/09/22 20:10 03/09/22 20:15 Temperature 98
--- NOTE | 2022-03-10 10:50 | PCPTNOTE ---
Attempted PT evaluation, Pt needing foot wounds wrapped prior to being able to ambulate per RN. However, RN waiting on materials to be able to wrap pt's feet. Will Follow.
[2022-03-10 12:25] LABS: Glucose Point of Care 219 mg/dl (65-105)
--- NOTE | 2022-03-10 12:26 | PM.CNGS ---
Assessment and Plan Assessment and plan (1) Wound of foot: Code(s): S91.309A - Unspecified open wound, unspecified foot, initial encounter Status: Acute Assessment and Plan: superficial ulcer s/p debridement by wound care nurse, no s/s deeper infection, local wound care, will need compression to tian LE History of Present Illness Consult details Consult date: 03/10/22 Reason for consult: wound care Requesting physician: Estefany Kat DO Narrative: The pt is a 56 y/o F c multiple med issues presenting c severe pain in her left foot. Pt reports chronic issues c her L foot since work accident 4 yrs ago. Pt c severe tian lymphedema. Pt reports she is usually able to ambulate c walker but really hasn't been able to put any pressure on foot over last wk or so. Pt reports some swelling in the area as well. Review of Systems Review of Systems: All systems reviewed & are unremarkable except as noted in HPI and below PMFSH Past Medical History Medical History Anxiety Body mass index [BMI] 60.0-69.9, adult Diabetic peripheral neuropathy Elephantiasis nostras verrucosa bilateral Essential hypertension Hiatal hernia Left calcaneal fracture Type 2 diabetes mellitus Vitamin D deficiency Surgical History Surgical History History of x2 Status post hysteroscopic ablation of endometrium (~2006) Family History Family History Grandparent Family history of bronchitis Family history of coronary artery disease Mother Hypertension, Onset Age: 71 Family history of diabetes mellitus in first degree relative Patient's mother is in good health Family history of Alzheimer's disease, Onset Age: 71 Diabetes mellitus, Onset Age: 71 Father Family history unknown Other Asthma Social History Social History Social History: Patient lives at home with her 2 children. She lists her aunt, Debbie, as her surrogate MDM. She wishes to be a [employer]. 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 She has a daughter who is 26 years old and a son who is 18 years old. She lives alone. Smoking status: Never smoker Second hand tobacco smoke exposure: No Alcohol intake: never Substance use: current Substance use type: does not use Lack of Transportation: YES Lack of Food: Never True Current Housing: I Have Housing Concerned About Future Housing: No Difficulty Paying Gas/Electric Bills: No Difficulty Paying for Meds: No Currently Unemployed: No Education: Grade School Difficulty w/ Childcare or Family Care: No Gender identity (if verbalized by the patient): Female Spiritual care concerns: No Agree to blood products: Yes Meds Home Medications and Allergies Home Medications Medication Instructions Recorded Confirmed Type hydrochlorothiazide 25 mg tablet 25 mg PO DAILY #30 tabs 11/10/21 03/09/22 Rx metoprolol tartrate 50 mg tablet 50 mg PO BID #60 tabs 11/10/21 03/09/22 Rx pregabalin 100 mg capsule (Lyrica) 100 mg PO BID #60 caps 11/10/21 03/09/22 Rx sertraline 100 mg tablet 100 mg PO DAILY #30 tabs 11/10/21 03/09/22 Rx glyburide 5 mg tablet 5 mg PO BID 03/09/22 03/09/22 History Allergies Allergy/AdvReac Type Severity Reaction Status Date / Time lisinopril Allergy Unknown lip Verified 03/09/22 20:14 swelling naproxen Allergy Unknown Hives Verified 03/09/22 20:14 prednisone Allergy Unknown Hives Verified 03/09/22 20:14 Vital Signs Vital Signs - 24 hr 03/09/22 17:43 03/09/22 20:10 03/09/22 20:15 Temperature 37.0 C Pulse Rate 107 H 96 Respiratory Rate 22 H 16 Blood Pr
[2022-03-10] MEDS: LACTIC ACID 12% LOTION 225 BTL 1 APPLIC TOPICAL ×2 (12:55→20:48)
[2022-03-10] MEDS: SILVERGEL (ELTA) 45 ML 1 APPLIC TOPICAL (12:55)
--- NOTE | 2022-03-10 13:39 | PCPTNOTE ---
Attempted PT evaluation, Pt refused due to pain in her feet after being debrided this date. RN aware. Will Follow
--- NOTE | 2022-03-10 13:48 | PCOTNOTE ---
Attempted OT evaluation, Pt refused due to pain in her feet after being debrided this date. RN aware. Will Follow
[2022-03-10 16:47] LABS: Glucose Point of Care 106 mg/dl (65-105)
[2022-03-10 21:12] LABS: Glucose Point of Care 149 mg/dl (65-105)
[2022-03-11 06:00] VITALS: PULSE 84; RESP 20; TEMP 36.3; O2SAT 94
[2022-03-11 07:59] LABS: Glucose Point of Care 168 mg/dl (65-105)
[2022-03-11] MEDS: HYDROcodone/acetaminophen (*CRX) 5-325 MG TABLET 1 TAB PO ×2 (08:17→18:37)
[2022-03-11 08:18] VITALS: PULSE 80
[2022-03-11] MEDS: glyBURIDE 5 MG TABLET PO ×2 (08:18→18:38)
[2022-03-11] MEDS: ENOXAPARIN 40 MG/0.4 ML SYRINGE SUB-Q ×2 (08:18→21:41)
[2022-03-11] MEDS: METOPROLOL TARTRATE 50 MG TAB PO ×2 (08:18→21:42)
[2022-03-11] MEDS: hydroCHLOROthiazide 25 MG TABLET PO (08:18)
[2022-03-11] MEDS: SERTRALINE HCL 50 MG TABLET 100 MG PO (08:18)
--- NOTE | 2022-03-11 11:48 | PM.PNGS ---
Progress Note: A&P Assessment and Plan (1) Wound of foot: Code(s): S91.309A - Unspecified open wound, unspecified foot, initial encounter Status: Acute Assessment and Plan: s/p debridement, no s/s active infection, cont local wound care, needs compression to tian LE, no acute surgical issues, will s/o, call c ?s, issues Subjective Subjective Date/Time Seen: 03/11/22 11:48 still c some pain in L foot although improved Review of Systems Review of Systems: All systems reviewed & are unremarkable except as noted in HPI and below Exam Const: General: cooperative, comfortable, no acute distress, ill appearing and obese Resp: Auscultation: diminished lung sounds Cardio: Rate: regular rate Rhythm: regular rhythm GI: Inspection: normal to inspection Skin: Other: L foot - no further drainage, decreased inflammation, no s/s active infection Objective Data Vital Signs Vital Signs: Vital Signs - 24 hr 03/10/22 12:00 03/10/22 14:00 03/10/22 12:00 Temperature Pulse Rate 92 88 Respiratory Rate Blood Pressure Pulse Oximetry Oxygen Delivery Room Air 03/10/22 20:48 03/10/22 20:47 03/10/22 22:00 Temperature 35.7 C L Pulse Rate 72 98 Respiratory Rate 16 Blood Pressure 149/57 H Pulse Oximetry 98 Oxygen Delivery Room Air 03/11/22 06:00 03/11/22 08:18 03/11/22 09:00 Temperature 36.3 C L Pulse Rate 84 80 Respiratory Rate 20 Blood Pressure Pulse Oximetry 94 Oxygen Delivery Room Air Intake/Output Intake/Output: Intake & Output 03/08/22 03/09/22 03/10/22 03/11/22 23:59 23:59 23:59 23:59 Intake Total 1690 840 Balance 1690 840 Meds/Results Medications: Active Medications Generic Name Dose Route Start Last Admin Trade Name Freq PRN Reason Stop Dose Admin Acetaminophen 650 mg 03/09/22 20:54 Acetaminophen 325 Mg Tablet PO Q4H PRN Mild Pain (1-3) or Fever Hydrocodone Bitart/Acetaminophen 1 tab 03/09/22 20:54 03/11/22 08:17 Hydrocodone/Acetaminophen (*Crx) 5-325 Mg Tablet PO 1 tab Q4H PRN Administration Pain Rated 4-6 Dextrose 12.5 gm 03/09/22 23:31 Dextrose 50% 25 Gm/50 Ml Syringe IV PUSH PRN PRN Hypoglycemia Protocol Enoxaparin Sodium 40 mg 03/10/22 09:00 03/11/22 08:18 Enoxaparin 40 Mg/0.4 Ml Syringe SUB-Q 40 mg Q12HR LISA Administration Glucagon 1 mg 03/09/22 23:31 Glucagon For Inj 1 Mg Vial IM PRN PRN Hypoglycemia Protocol Glucose 15 gm 03/09/22 23:31 Glucose Oral Gel 15 Gm Of Glucse In 37.5 Gm Tube PO PRN PRN Hypoglycemia Protocol Glyburide 5 mg 03/10/22 08:00 03/11/22 08:18 Glyburide 5 Mg Tablet PO 5 mg BIDWM LISA Administration Hydrochlorothiazide 25 mg 03/10/22 09:00 03/11/22 08:18 Hydrochlorothiazide 25 Mg Tablet PO 25 mg DAILY LISA Administration Dextrose 1,000 mls @ 100 mls/hr 03/09/22 23:31 Dextrose 5% 1,000 Ml IVPB PRN PRN Hypoglycemia Protocol Piperacillin/Tazobactam/Dextrose 3.375 gm in 50 mls @ 100 mls/hr 03/10/22 00:00 03/11/22 07:35 Zosyn 3.375 Gm/D5w 50ml Pm IVPB 100 mls/hr Q6H LISA Administration Insulin Aspart 3 - 6 units 03/10/22 08:00 03/11/22 08:25 Insulin Aspart (*Bkc) 100 Units/Ml SUB-Q Not Given TIDWM LISA Protocol Lactic Acid 1 applic 03/10/22 10:30 03/10/22 20:48 Lactic Acid 12% Lotion 225 Btl TOPICAL 1 applic Q12HR LISA Administration Metoprolol Tartrate 50 mg 03/09/22 23:40 03/11/22 08:18 Metoprolol Tartrate 50 Mg Tab PO 50 mg Q12HR LISA Administration Morphine Sulfate 4 mg 03/09/22 20:54 Morphine Sulfate (*Crx) 4 Mg/Ml Inj IV PUSH Q2H PRN Pain Rated 7-10 Ondansetron HCl 4 mg 03/09/22 20:54 Ondansetron Inj 4 Mg/2 Ml Vial IV PUSH Q4H PRN Nausea Pregabalin 100 mg 03/10/22 09:00 03/10/22 18:13 Pregabalin (*Crx) 50 Mg Capsule PO 100 mg BID LISA Administration Ser
[2022-03-11 11:57] LABS: Glucose Point of Care 211 mg/dl (65-105)
[2022-03-11] MEDS: SILVERGEL (ELTA) 45 ML 1 APPLIC TOPICAL (12:00)
[2022-03-11] MEDS: LACTIC ACID 12% LOTION 225 BTL 1 APPLIC TOPICAL ×2 (12:00→21:42)
--- NOTE | 2022-03-11 12:30 | PM.IMPN ---
Progress Note: A&P Assessment and Plan (1) Wound of foot: Code(s): S91.309A - Unspecified open wound, unspecified foot, initial encounter Status: Acute Assessment and Plan: Given the patient's report of fever of 102 at home and associated tissue changes in the patient's foot on concern for ulcer that may have not unroof itself verses underlying abscess. Unfortunately patient is too large to be placed on the CT table for imaging of her foot. Will order for ultrasound to see if they can further evaluate the underlying tissues of the left midfoot. Will consult General surgery for recommendations and possible debridement. Will obtain blood cultures and place patient on antibiotic therapy with Zosyn. 03/11/2022 interval history: patient reported of fever of 102 at home and associated tissue changes in the patient's foot there is concern? for ulcer.? Unfortunately patient is too large to be placed on the CT table for imaging of her foot. patient was seen by general surgery does not suspect abscess and patient does not need surgical intervention, and recommended medical management, and dressing changes, ? blood cultures are ordered and placed patient on antibiotic therapy with Zosyn. wound care nurse consulted. will have PT/OT evaluate the patient and pateint will benefit going to rehab. (2) Type 2 diabetes mellitus with hyperglycemia, without long-term current use of insulin: Code(s): E11.65 - Type 2 diabetes mellitus with hyperglycemia Status: Acute Assessment and Plan: Will continue patient's home glyburide and metformin. Will place patient on moderate sliding scale insulin Accu-Cheks a.c. HS. Diet has been changed to consistent carbohydrate. Hypoglycemia protocol has been ordered as needed. (3) Chest pain: Code(s): R07.9 - Chest pain, unspecified Status: Acute Assessment and Plan: The patient has multiple risk factors for coronary disease including diabetes hypertension and morbid obesity. The however the patient's chest pain seems atypical. Will monitor the patient in IMU incomplete serial cardiac enzymes. (4) Elephantiasis nostras verrucosa: Code(s): I89.0 - Lymphedema, not elsewhere classified Status: Acute Assessment and Plan: Complicating patient's current condition. Treatment options are limited. (5) Body mass index [BMI] 60.0-69.9, adult: Code(s): Z68.44 - Body mass index [BMI] 60.0-69.9, adult Status: Acute Assessment and Plan: Patient would benefit from diet and lifestyle modification and should consider bariatric surgery at for any realistic option of long-term weight loss. (6) Anxiety: Code(s): F41.9 - Anxiety disorder, unspecified Status: Acute Assessment and Plan: Likely contributing to the patient's reports of chest pain. Will continue with reassurance and sertraline. Plan Patient has been admitted as observation status. Subjective Date/time seen: 03/11/22 12:30 03/11/2022 interval history: patient reported of fever of 102 at home and associated tissue changes in the patient's foot there is concern? for ulcer.? Unfortunately patient is too large to be placed on the CT table for imaging of her foot. patient was seen by general surgery does not suspect abscess and patient does not need surgical intervention, and recommended medical management, and dressing changes, ? blood cultures are ordered and placed patient on antibiotic therapy with Zosyn. wound care nurse consulted. will have PT/OT evaluate the patient and pateint will benefit going to rehab. Review of Systems Review of Systems: All systems reviewed & are unremarkable except as noted in HPI and below Exam Narrative: morbidly obese Patient is comfortable, NAD HEENT: eyes are clear and none icteric LUNGS: normal respiratory effort ABD: obese distended Lower extremities: no edema SKIN: nonjaundiced Neuro:
[2022-03-11] MEDS: INSULIN ASPART (*BKC) 100 UNITS/ML SUB-Q ×2 (13:59→18:37)
[2022-03-11 14:00] VITALS: BP 151/71; PULSE 89; RESP 20; TEMP 35.8; O2SAT 94
[2022-03-11 16:42] LABS: Glucose Point of Care 254 mg/dl (65-105)
[2022-03-11] MEDS: PREGABALIN (*CRX) 50 MG CAPSULE 100 MG PO (18:38)
[2022-03-11 21:42] VITALS: PULSE 94
[2022-03-11 22:00] VITALS: BP 145/84; PULSE 97; RESP 15; TEMP 35.9; O2SAT 92
[2022-03-12 06:00] VITALS: BP 134/59; PULSE 83; RESP 18; TEMP 35.8; O2SAT 93
[2022-03-12 07:16] LABS: Hematocrit 37.5 % (37.0-47.0); Hemoglobin 11.2 g/dL (12.0-15.0); Mean Corpuscular HGB Conc 29.9 g/dl (32-36); Mean Corpuscular Hemoglobin 24.5 pg (26-34); Mean Corpuscular Volume 82.1 fl (80-100); Mean Platelet Volume 10.7 fl (7.4-10.4); Platelet Count Result 308 k/mm3 (150-375); Red Blood Count 4.57 M/mm3 (4.2-5.4); Red Cell Distribution Width 14.4 % (11.5-14.5)
[2022-03-12 07:36] LABS: Anion Gap 7 mmol/L (8-16); Blood Urea Nitrogen 8 mg/dL (7-17); Calcium 8.4 mg/dL (8.4-10.2); Carbon Dioxide 30 mmol/L (22-30); Chloride 101 mmol/L (98-107); Estimated CRCL calculation 249 ml/min; Estimated Glomerular Filt Rate > 60; Glucose 158 mg/dL (65-110); Potassium 3.4 mmol/L (3.4-5.0); Sodium 138 mmol/L (137-145)
[2022-03-12 08:00] VITALS: PULSE 83; RESP 18; O2SAT 93
[2022-03-12 08:06] LABS: Glucose Point of Care 159 mg/dl (65-105)
[2022-03-12] MEDS: glyBURIDE 5 MG TABLET PO ×2 (09:12→17:57)
[2022-03-12] MEDS: hydroCHLOROthiazide 25 MG TABLET PO (09:12)
[2022-03-12] MEDS: SERTRALINE HCL 50 MG TABLET 100 MG PO (09:12)
[2022-03-12] MEDS: METOPROLOL TARTRATE 50 MG TAB PO ×2 (09:12→21:32)
[2022-03-12] MEDS: LACTIC ACID 12% LOTION 225 BTL 1 APPLIC TOPICAL ×2 (09:13→21:31)
[2022-03-12] MEDS: SILVERGEL (ELTA) 45 ML 1 APPLIC TOPICAL (09:13)
[2022-03-12] MEDS: ENOXAPARIN 40 MG/0.4 ML SYRINGE SUB-Q ×2 (09:13→21:31)
[2022-03-12] MEDS: PREGABALIN (*CRX) 50 MG CAPSULE 100 MG PO ×2 (09:15→17:57)
[2022-03-12] MEDS: POTASSIUM CHLORIDE 20 MEQ TABLET 40 MEQ PO (09:16)
[2022-03-12 11:40] LABS: Glucose Point of Care 168 mg/dl (65-105)
--- NOTE | 2022-03-12 12:40 | PM.IMPN ---
Progress Note: A&P Assessment and Plan (1) Wound of foot: Code(s): S91.309A - Unspecified open wound, unspecified foot, initial encounter Status: Acute Assessment and Plan: Given the patient's report of fever of 102 at home and associated tissue changes in the patient's foot on concern for ulcer that may have not unroof itself verses underlying abscess. Unfortunately patient is too large to be placed on the CT table for imaging of her foot. Will order for ultrasound to see if they can further evaluate the underlying tissues of the left midfoot. Will consult General surgery for recommendations and possible debridement. Will obtain blood cultures and place patient on antibiotic therapy with Zosyn. 03/12/2022 interval history: patient reported of fever of 102 at home and associated tissue changes in the patient's foot there is concern? for ulcer.? Unfortunately patient is too large to be placed on the CT table for imaging of her foot. patient was seen by general surgery does not suspect abscess and patient does not need surgical intervention, and recommended medical management, and dressing changes, ? blood cultures are ordered, and no growth so far, placed patient on antibiotic therapy with Zosyn. wound care nurse consulted. will have PT/OT evaluate the patient and patient will benefit going to rehab. (2) Type 2 diabetes mellitus with hyperglycemia, without long-term current use of insulin: Code(s): E11.65 - Type 2 diabetes mellitus with hyperglycemia Status: Acute Assessment and Plan: Will continue patient's home glyburide and metformin. Will place patient on moderate sliding scale insulin Accu-Cheks a.c. HS. Diet has been changed to consistent carbohydrate. Hypoglycemia protocol has been ordered as needed. (3) Chest pain: Code(s): R07.9 - Chest pain, unspecified Status: Acute Assessment and Plan: The patient has multiple risk factors for coronary disease including diabetes hypertension and morbid obesity. The however the patient's chest pain seems atypical. Will monitor the patient in IMU incomplete serial cardiac enzymes. (4) Elephantiasis nostras verrucosa: Code(s): I89.0 - Lymphedema, not elsewhere classified Status: Acute Assessment and Plan: Complicating patient's current condition. Treatment options are limited. (5) Body mass index [BMI] 60.0-69.9, adult: Code(s): Z68.44 - Body mass index [BMI] 60.0-69.9, adult Status: Acute Assessment and Plan: Patient would benefit from diet and lifestyle modification and should consider bariatric surgery at for any realistic option of long-term weight loss. (6) Anxiety: Code(s): F41.9 - Anxiety disorder, unspecified Status: Acute Assessment and Plan: Likely contributing to the patient's reports of chest pain. Will continue with reassurance and sertraline. Plan Patient has been admitted as observation status. Subjective Date/time seen: 03/12/22 12:40 Given the patient's report of fever of 102 at home and associated tissue changes in the patient's foot on concern for ulcer that may have not unroof itself verses underlying abscess. Unfortunately patient is too large to be placed on the CT table for imaging of her foot. Will order for ultrasound to see if they can further evaluate the underlying tissues of the left midfoot. Will consult General surgery for recommendations and possible debridement. Will obtain blood cultures and place patient on antibiotic therapy with Zosyn. 03/12/2022 interval history: patient reported of fever of 102 at home and associated tissue changes in the patient's foot there is concern? for ulcer.? Unfortunately patient is too large to be placed on the CT table for imaging of her foot. patient was seen by general surgery does not suspect abscess and patient does not need surgical intervention, and recommended medical m
[2022-03-12 14:00] VITALS: BP 109/85; PULSE 102; RESP 20; TEMP 36.6; O2SAT 98
[2022-03-12 17:14] LABS: Glucose Point of Care 140 mg/dl (65-105)
[2022-03-12 21:57] VITALS: BP 133/53; PULSE 87; RESP 20; TEMP 36.4; O2SAT 98
[2022-03-13 05:20] VITALS: BP 137/73; PULSE 70; RESP 20; TEMP 36.6; O2SAT 93
[2022-03-13 07:18] LABS: Hematocrit 40.4 % (37.0-47.0); Mean Corpuscular HGB Conc 29.7 g/dl (32-36); Mean Corpuscular Hemoglobin 25.1 pg (26-34); Mean Corpuscular Volume 84.5 fl (80-100); Mean Platelet Volume 10.4 fl (7.4-10.4); Platelet Count Result 297 k/mm3 (150-375); Red Blood Count 4.78 M/mm3 (4.2-5.4); Red Cell Distribution Width 14.3 % (11.5-14.5); White Blood Count 6.5 K/mm3 (4.5-10.0)
[2022-03-13 07:35] LABS: Anion Gap 7 mmol/L (8-16); Blood Urea Nitrogen 7 mg/dL (7-17); Calcium 8.4 mg/dL (8.4-10.2); Carbon Dioxide 31 mmol/L (22-30); Chloride 100 mmol/L (98-107); Estimated CRCL calculation 206 ml/min; Estimated Glomerular Filt Rate > 60; Glucose 150 mg/dL (65-110); Potassium 3.6 mmol/L (3.4-5.0); Sodium 138 mmol/L (137-145)
--- NOTE | 2022-03-13 07:54 | PC.NURSE ---
Patient refused to use the restroom this morning due to not wanting to move, patient was asked several times to be assisted but continued to refuse.
[2022-03-13 08:00] VITALS: PULSE 70; RESP 20; O2SAT 93
[2022-03-13 08:21] LABS: Glucose Point of Care 142 mg/dl (65-105)
[2022-03-13] MEDS: ENOXAPARIN 40 MG/0.4 ML SYRINGE SUB-Q ×2 (09:14→22:12)
[2022-03-13] MEDS: hydroCHLOROthiazide 25 MG TABLET PO (09:14)
[2022-03-13] MEDS: SERTRALINE HCL 50 MG TABLET 100 MG PO (09:14)
[2022-03-13] MEDS: glyBURIDE 5 MG TABLET PO ×2 (09:14→17:38)
[2022-03-13] MEDS: METOPROLOL TARTRATE 50 MG TAB PO ×2 (09:15→22:13)
[2022-03-13] MEDS: LACTIC ACID 12% LOTION 225 BTL 1 APPLIC TOPICAL ×2 (09:15→22:13)
[2022-03-13] MEDS: SILVERGEL (ELTA) 45 ML 1 APPLIC TOPICAL (09:15)
[2022-03-13] MEDS: PREGABALIN (*CRX) 50 MG CAPSULE 100 MG PO ×2 (09:17→17:38)
[2022-03-13 12:20] LABS: Glucose Point of Care 209 mg/dl (65-105)
[2022-03-13] MEDS: HYDROcodone/acetaminophen (*CRX) 5-325 MG TABLET 1 TAB PO (12:55)
[2022-03-13] MEDS: INSULIN ASPART (*BKC) 100 UNITS/ML SUB-Q (12:56)
[2022-03-13 14:00] VITALS: BP 135/76; PULSE 81; RESP 20; TEMP 35.6; O2SAT 96
--- NOTE | 2022-03-13 16:37 | PM.IMPN ---
Progress Note: A&P Assessment and Plan (1) Wound of foot: Code(s): S91.309A - Unspecified open wound, unspecified foot, initial encounter Status: Acute Assessment and Plan: Given the patient's report of fever of 102 at home and associated tissue changes in the patient's foot on concern for ulcer that may have not unroof itself verses underlying abscess. Unfortunately patient is too large to be placed on the CT table for imaging of her foot. Will order for ultrasound to see if they can further evaluate the underlying tissues of the left midfoot. Will consult General surgery for recommendations and possible debridement. Will obtain blood cultures and place patient on antibiotic therapy with Zosyn. 03/13/2022 interval history: patient reported of fever of 102 at home and associated tissue changes in the patient's foot there is concern? for ulcer.? Unfortunately patient is too large to be placed on the CT table for imaging of her foot. patient was seen by general surgery does not suspect abscess and patient does not need surgical intervention, and recommended medical management, and dressing changes, ? blood cultures are ordered, and no growth so far, placed patient on antibiotic therapy with Zosyn. wound care nurse consulted. due to morbid obesity patient is not able to take care of herself under current condition requesting to be sent to rehab patient made with the career information specialist and several referrals been sent including [facility] instructed and further recommendation to follow, will have PT/OT evaluate the patient and patient will benefit going to rehab. (2) Type 2 diabetes mellitus with hyperglycemia, without long-term current use of insulin: Code(s): E11.65 - Type 2 diabetes mellitus with hyperglycemia Status: Acute Assessment and Plan: Will continue patient's home glyburide and metformin. Will place patient on moderate sliding scale insulin Accu-Cheks a.c. HS. Diet has been changed to consistent carbohydrate. Hypoglycemia protocol has been ordered as needed. (3) Chest pain: Code(s): R07.9 - Chest pain, unspecified Status: Acute Assessment and Plan: The patient has multiple risk factors for coronary disease including diabetes hypertension and morbid obesity. The however the patient's chest pain seems atypical. Will monitor the patient in IMU incomplete serial cardiac enzymes. (4) Elephantiasis nostras verrucosa: Code(s): I89.0 - Lymphedema, not elsewhere classified Status: Acute Assessment and Plan: Complicating patient's current condition. Treatment options are limited. (5) Body mass index [BMI] 60.0-69.9, adult: Code(s): Z68.44 - Body mass index [BMI] 60.0-69.9, adult Status: Acute Assessment and Plan: Patient would benefit from diet and lifestyle modification and should consider bariatric surgery at for any realistic option of long-term weight loss. (6) Anxiety: Code(s): F41.9 - Anxiety disorder, unspecified Status: Acute Assessment and Plan: Likely contributing to the patient's reports of chest pain. Will continue with reassurance and sertraline. Plan Patient has been admitted as observation status. Subjective Date/time seen: 03/13/22 16:37 Given the patient's report of fever of 102 at home and associated tissue changes in the patient's foot on concern for ulcer that may have not unroof itself verses underlying abscess. Unfortunately patient is too large to be placed on the CT table for imaging of her foot. Will order for ultrasound to see if they can further evaluate the underlying tissues of the left midfoot. Will consult General surgery for recommendations and possible debridement. Will obtain blood cultures and place patient on antibiotic therapy with Zosyn. 03/13/2022 interval history: patient reported of fever of 102 at home and associated tissue changes in the patie
[2022-03-13 17:12] LABS: Glucose Point of Care 123 mg/dl (65-105)
[2022-03-13 22:00] VITALS: BP 138/73; PULSE 84; RESP 16; TEMP 36; O2SAT 98
[2022-03-14 02:05] LABS: Glucose Point of Care 147 mg/dl (65-105)
[2022-03-14 06:00] VITALS: BP 163/99; PULSE 81; RESP 16; TEMP 35.9; O2SAT 96
[2022-03-14 06:55] LABS: Hematocrit 39.9 % (37.0-47.0); Hemoglobin 12.1 g/dL (12.0-15.0); Mean Corpuscular HGB Conc 30.3 g/dl (32-36); Mean Corpuscular Hemoglobin 24.8 pg (26-34); Mean Corpuscular Volume 81.8 fl (80-100); Mean Platelet Volume 10.6 fl (7.4-10.4); Platelet Count Result 321 k/mm3 (150-375); Red Blood Count 4.88 M/mm3 (4.2-5.4); Red Cell Distribution Width 14.6 % (11.5-14.5); White Blood Count 6.8 K/mm3 (4.5-10.0)
[2022-03-14 07:00] LABS: Anion Gap 9 mmol/L (8-16); Blood Urea Nitrogen 8 mg/dL (7-17); Calcium 8.6 mg/dL (8.4-10.2); Carbon Dioxide 28 mmol/L (22-30); Chloride 100 mmol/L (98-107); Estimated CRCL calculation 206 ml/min; Estimated Glomerular Filt Rate > 60; Glucose 167 mg/dL (65-110); Potassium 3.7 mmol/L (3.4-5.0); Sodium 137 mmol/L (137-145)
[2022-03-14 07:45] LABS: Glucose Point of Care 177 mg/dl (65-105)
[2022-03-14] MEDS: ENOXAPARIN 40 MG/0.4 ML SYRINGE SUB-Q ×2 (08:37→21:53)
[2022-03-14] MEDS: SILVERGEL (ELTA) 45 ML 1 APPLIC TOPICAL (08:38)
[2022-03-14] MEDS: glyBURIDE 5 MG TABLET PO ×2 (08:38→17:01)
[2022-03-14] MEDS: SERTRALINE HCL 50 MG TABLET 100 MG PO (08:38)
[2022-03-14] MEDS: PREGABALIN (*CRX) 50 MG CAPSULE 100 MG PO ×2 (08:38→17:00)
[2022-03-14] MEDS: hydroCHLOROthiazide 25 MG TABLET PO (08:38)
[2022-03-14] MEDS: LACTIC ACID 12% LOTION 225 BTL 1 APPLIC TOPICAL ×2 (08:38→22:59)
[2022-03-14] MEDS: METOPROLOL TARTRATE 50 MG TAB PO ×2 (08:38→21:53)
[2022-03-14 11:37] LABS: Glucose Point of Care 173 mg/dl (65-105)
[2022-03-14 14:00] VITALS: BP 133/69; PULSE 83; RESP 16; TEMP 35.8; O2SAT 95
[2022-03-14 16:32] LABS: Glucose Point of Care 138 mg/dl (65-105)
--- NOTE | 2022-03-14 16:43 | PM.IMPN ---
Progress Note: A&P Assessment and Plan (1) Wound of foot: Code(s): S91.309A - Unspecified open wound, unspecified foot, initial encounter Status: Acute Assessment and Plan: Given the patient's report of fever of 102 at home and associated tissue changes in the patient's foot on concern for ulcer that may have not unroof itself verses underlying abscess. Unfortunately patient is too large to be placed on the CT table for imaging of her foot. Will order for ultrasound to see if they can further evaluate the underlying tissues of the left midfoot. Will consult General surgery for recommendations and possible debridement. Will obtain blood cultures and place patient on antibiotic therapy with Zosyn. 03/14/2022 interval history: patient reported of fever of 102 at home and associated tissue changes in the patient's foot there is concern? for ulcer.? Unfortunately patient is too large to be placed on the CT table for imaging of her foot. patient was seen by general surgery does not suspect abscess and patient does not need surgical intervention, and recommended medical management, and dressing changes, ? blood cultures are ordered, and no growth so far, placed patient on antibiotic therapy with Zosyn. wound care nurse consulted. due to morbid obesity patient is not able to take care of herself under current condition requesting to be sent to rehab patient made with the [facility] long term care and several referrals been sent including [facility] instructed and further recommendation to follow, [facility] [place] is currently evaluating and patient and further recommendation to follow, will continue PT/OT to evaluate the patient and patient will benefit going to rehab. (2) Type 2 diabetes mellitus with hyperglycemia, without long-term current use of insulin: Code(s): E11.65 - Type 2 diabetes mellitus with hyperglycemia Status: Acute Assessment and Plan: Will continue patient's home glyburide and metformin. Will place patient on moderate sliding scale insulin Accu-Cheks a.c. HS. Diet has been changed to consistent carbohydrate. Hypoglycemia protocol has been ordered as needed. (3) Chest pain: Code(s): R07.9 - Chest pain, unspecified Status: Acute Assessment and Plan: The patient has multiple risk factors for coronary disease including diabetes hypertension and morbid obesity. The however the patient's chest pain seems atypical. Will monitor the patient in IMU incomplete serial cardiac enzymes. (4) Elephantiasis nostras verrucosa: Code(s): I89.0 - Lymphedema, not elsewhere classified Status: Acute Assessment and Plan: Complicating patient's current condition. Treatment options are limited. (5) Body mass index [BMI] 60.0-69.9, adult: Code(s): Z68.44 - Body mass index [BMI] 60.0-69.9, adult Status: Acute Assessment and Plan: Patient would benefit from diet and lifestyle modification and should consider bariatric surgery at for any realistic option of long-term weight loss. (6) Anxiety: Code(s): F41.9 - Anxiety disorder, unspecified Status: Acute Assessment and Plan: Likely contributing to the patient's reports of chest pain. Will continue with reassurance and sertraline. Plan Patient has been admitted as observation status. Subjective Date/time seen: 03/14/22 16:43 03/14/2022 interval history: patient reported of fever of 102 at home and associated tissue changes in the patient's foot there is concern? for ulcer.? Unfortunately patient is too large to be placed on the CT table for imaging of her foot. patient was seen by general surgery does not suspect abscess and patient does not need surgical intervention, and recommended medical management, and dressing changes, ? blood cultures are ordered, and no growth so far, placed patient on antibiotic therapy with Zosyn. wound care nurse consulted. due to
[2022-03-14] MEDS: HYDROcodone/acetaminophen (*CRX) 5-325 MG TABLET 1 TAB PO (17:00)
[2022-03-14 21:38] VITALS: BP 131/69; PULSE 84; RESP 14; TEMP 36.1; O2SAT 94
[2022-03-14 21:53] VITALS: PULSE 84
[2022-03-14 21:59] LABS: Glucose Point of Care 166 mg/dl (65-105)
[2022-03-15 05:49] VITALS: BP 124/68; PULSE 65; RESP 14; TEMP 36.1; O2SAT 96
[2022-03-15 06:30] LABS: Hematocrit 38.7 % (37.0-47.0); Hemoglobin 11.6 g/dL (12.0-15.0); Mean Corpuscular Hemoglobin 24.7 pg (26-34); Mean Corpuscular Volume 82.3 fl (80-100); Mean Platelet Volume 10.6 fl (7.4-10.4); Platelet Count Result 298 k/mm3 (150-375); Red Cell Distribution Width 14.6 % (11.5-14.5); White Blood Count 6.3 K/mm3 (4.5-10.0)
[2022-03-15 06:33] LABS: Anion Gap 8 mmol/L (8-16); Blood Urea Nitrogen 9 mg/dL (7-17); Calcium 8.5 mg/dL (8.4-10.2); Carbon Dioxide 29 mmol/L (22-30); Chloride 101 mmol/L (98-107); Estimated CRCL calculation 206 ml/min; Estimated Glomerular Filt Rate > 60; Glucose 182 mg/dL (65-110); Potassium 3.5 mmol/L (3.4-5.0); Sodium 138 mmol/L (137-145)
[2022-03-15 08:41] LABS: Glucose Point of Care 163 mg/dl (65-105)
[2022-03-15] MEDS: LACTIC ACID 12% LOTION 225 BTL 1 APPLIC TOPICAL ×2 (08:52→20:36)
[2022-03-15] MEDS: hydroCHLOROthiazide 25 MG TABLET PO (08:52)
[2022-03-15] MEDS: SILVERGEL (ELTA) 45 ML 1 APPLIC TOPICAL (08:52)
[2022-03-15] MEDS: METOPROLOL TARTRATE 50 MG TAB PO ×2 (08:52→20:35)
[2022-03-15] MEDS: ENOXAPARIN 40 MG/0.4 ML SYRINGE SUB-Q ×2 (08:52→20:34)
[2022-03-15] MEDS: glyBURIDE 5 MG TABLET PO ×2 (08:52→17:49)
[2022-03-15] MEDS: PREGABALIN (*CRX) 50 MG CAPSULE 100 MG PO ×2 (08:52→17:49)
[2022-03-15] MEDS: SERTRALINE HCL 50 MG TABLET 100 MG PO (08:52)
--- NOTE | 2022-03-15 10:31 | PM.IMPN ---
Progress Note: A&P Assessment and Plan (1) Wound of foot: Code(s): S91.309A - Unspecified open wound, unspecified foot, initial encounter Status: Acute Assessment and Plan: Given the patient's report of fever of 102 at home and associated tissue changes in the patient's foot on concern for ulcer that may have not unroof itself verses underlying abscess. Unfortunately patient is too large to be placed on the CT table for imaging of her foot. Will order for ultrasound to see if they can further evaluate the underlying tissues of the left midfoot. Will consult General surgery for recommendations and possible debridement. Will obtain blood cultures and place patient on antibiotic therapy with Zosyn. 03/14/2022 interval history: patient reported of fever of 102 at home and associated tissue changes in the patient's foot there is concern? for ulcer.? Unfortunately patient is too large to be placed on the CT table for imaging of her foot. patient was seen by general surgery does not suspect abscess and patient does not need surgical intervention, and recommended medical management, and dressing changes, ? blood cultures are ordered, and no growth so far, placed patient on antibiotic therapy with Zosyn. wound care nurse consulted. due to morbid obesity patient is not able to take care of herself under current condition requesting to be sent to rehab patient made with the career placement services counselor and several referrals been sent including [facility] instructed and further recommendation to follow, [facility] is currently evaluating and patient and further recommendation to follow, will continue PT/OT to evaluate the patient and patient will benefit going to rehab. (2) Type 2 diabetes mellitus with hyperglycemia, without long-term current use of insulin: Code(s): E11.65 - Type 2 diabetes mellitus with hyperglycemia Status: Acute Assessment and Plan: Will continue patient's home glyburide and metformin. Will place patient on moderate sliding scale insulin Accu-Cheks a.c. HS. Diet has been changed to consistent carbohydrate. Hypoglycemia protocol has been ordered as needed. (3) Chest pain: Code(s): R07.9 - Chest pain, unspecified Status: Acute Assessment and Plan: The patient has multiple risk factors for coronary disease including diabetes hypertension and morbid obesity. The however the patient's chest pain seems atypical. 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 Treatment options are limited. (5) Body mass index [BMI] 60.0-69.9, adult: Code(s): Z68.44 - Body mass index [BMI] 60.0-69.9, adult Status: Acute Assessment and Plan: Patient would benefit from diet and lifestyle modification and should consider bariatric surgery at for any realistic option of long-term weight loss. (6) Anxiety: Code(s): F41.9 - Anxiety disorder, unspecified Status: Acute Assessment and Plan: Likely contributing to the patient's reports of chest pain. Will continue with reassurance and sertraline. Subjective Date/time seen: 03/15/22 10:31 Interval history: ?patient reported of fever of 102 at home and associated tissue changes in the patient's foot there is concern? for ulcer.? Unfortunately patient is too large to be placed on the CT table for imaging of her foot. patient was seen by general surgery does not suspect abscess and patient does not need surgical intervention, and recommended medical management, and dressing changes, ? blood cultures are ordered,? and no growth so far, placed patient on antibiotic therapy with Zosyn. wound care nurse consulted.? due to morbid obesity patient is not able to take care of herself under current condition requesting to be sent to
[2022-03-15 11:50] LABS: Glucose Point of Care 197 mg/dl (65-105)
[2022-03-15] MEDS: HYDROcodone/acetaminophen (*CRX) 5-325 MG TABLET 1 TAB PO (12:48)
[2022-03-15 14:00] VITALS: BP 131/58; PULSE 79; RESP 20; TEMP 36.7; O2SAT 94
--- NOTE | 2022-03-15 16:09 | PCPTNOTE ---
The patient treatment was not able to be completed today. PT attempted this A.M., however Physician with patient and L foot dressing was removed. Will plan to continue treatment per plan of care.
[2022-03-15 17:00] LABS: Glucose Point of Care 107 mg/dl (65-105)
[2022-03-15 20:00] VITALS: PULSE 80; RESP 20; O2SAT 94
[2022-03-15 21:46] VITALS: BP 146/75; PULSE 80; RESP 20; TEMP 36.6; O2SAT 94
[2022-03-15 23:45] VITALS: PULSE 80; RESP 20; O2SAT 94
[2022-03-16 05:17] VITALS: BP 153/75; PULSE 69; RESP 20; TEMP 36.4; O2SAT 99
[2022-03-16 06:30] LABS: Hematocrit 41.5 % (37.0-47.0); Mean Corpuscular HGB Conc 28.9 g/dl (32-36); Mean Corpuscular Hemoglobin 25.3 pg (26-34); Mean Corpuscular Volume 87.6 fl (80-100); Mean Platelet Volume 10.1 fl (7.4-10.4); Platelet Count Result 275 k/mm3 (150-375); Red Blood Count 4.74 M/mm3 (4.2-5.4); Red Cell Distribution Width 14.7 % (11.5-14.5)
[2022-03-16 06:42] LABS: Anion Gap 5 mmol/L (8-16); Blood Urea Nitrogen 9 mg/dL (7-17); Calcium 8.5 mg/dL (8.4-10.2); Carbon Dioxide 29 mmol/L (22-30); Chloride 104 mmol/L (98-107); Estimated CRCL calculation 206 ml/min; Estimated Glomerular Filt Rate > 60; Glucose 121 mg/dL (65-110); Potassium 3.7 mmol/L (3.4-5.0); Sodium 138 mmol/L (137-145)
[2022-03-16] MEDS: ENOXAPARIN 40 MG/0.4 ML SYRINGE SUB-Q (08:08)
[2022-03-16 08:09] VITALS: PULSE 76
[2022-03-16] MEDS: glyBURIDE 5 MG TABLET PO (08:09)
[2022-03-16] MEDS: hydroCHLOROthiazide 25 MG TABLET PO (08:09)
[2022-03-16] MEDS: METOPROLOL TARTRATE 50 MG TAB PO (08:09)
[2022-03-16] MEDS: SERTRALINE HCL 50 MG TABLET 100 MG PO (08:11)
[2022-03-16] MEDS: PREGABALIN (*CRX) 50 MG CAPSULE 100 MG PO (08:15)
[2022-03-16] MEDS: SILVERGEL (ELTA) 45 ML 1 APPLIC TOPICAL (08:18)
[2022-03-16] MEDS: LACTIC ACID 12% LOTION 225 BTL 1 APPLIC TOPICAL (08:20)
[2022-03-16 08:35] LABS: Glucose Point of Care 126 mg/dl (65-105)
--- NOTE | 2022-03-16 11:48 | PM.DS ---
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 for ulcer that may have not unroof itself verses underlying abscess.? Unfortunately patient is too large to be placed on the CT table for imaging of her foot.? General surgery consulted for recommendations and possible debridement.? blood cultures obtained started on Zosyn. general surgery does not suspect abscess and patient does not need surgical intervention, and recommended medical management, and dressing changes, She had bedside debridement during the stay. due to morbid obesity patient is not able to take care of herself under current condition requesting to be sent to rehab she was on Zosyn during the hospital stay been switched to Bactrim at discharge for underlying cellulitis and wound ulcer in left foot #Type 2 diabetes mellitus with hyperglycemia, without long-term current use of insulin: ? Will continue patient's home glyburide and metformin.? Will place patient on moderate sliding scale insulin Accu-Cheks a.c. HS.? Diet has been changed to consistent carbohydrate.? Hypoglycemia protocol has been ordered as needed. # chest pain: The patient has multiple risk factors for coronary disease including diabetes hypertension and morbid obesity.? The however the patient's chest pain seems atypical. ? see you troponins were negative #Elephantiasis nostras verrucosa: ? Complicating patient's current condition.? Treatment options are limited. # BMI 60-69.9: Patient would benefit from diet and lifestyle modification and should consider bariatric surgery at for any realistic option of long-term weight loss. # anxiety: ? Likely contributing to the patient's reports of chest pain.? Will continue with reassurance and sertraline. Time Spent with Patient Time attestation: Total time spent providing and/or coordinating discharge services: 45 minutes Exam Narrative: patient with morbid obesity laying in bed in no acute distress Patient is comfortable, NAD HEENT: eyes are clear and none icteric LUNGS: normal respiratory effort clear to auscultation anteriorly ABD: obese distended soft nontender Lower extremities: bilateral lymphedema with lichenified skin SKIN: nonjaundiced Neuro: grossly intact. DS: Data Data Completed and Pending Labs on day of discharge: Labs from last 24 hours 03/16/22 03/16/22 03/16/22 08:32 06:20 06:20 WBC 6.0 RBC 4.74 Hgb 12.0 Hct 41.5 MCV 87.6 D MCH 25.3 L MCHC 28.9 L RDW 14.7 H Plt Count 275 MPV 10.1 Sodium 138 Potassium 3.7 Chloride 104 Carbon Dioxide 29 Anion Gap 5 L BUN 9 Creatinine 0.50 L Estim Creat Clear Calc 206 Estimated GFR > 60 Glucose 121 H POC Capillary Glucose 126 H Calcium 8.5 03/15/22 03/15/22 16:50 11:39 WBC RBC Hgb Hct MCV MCH MCHC RDW Plt Count MPV Sodium Potassium Chloride Carbon Dioxide Anion Gap BUN Creatinine Estim Cr
[2022-03-16 11:55] LABS: Glucose Point of Care 164 mg/dl (65-105)
[2022-03-16 17:13] LABS: Glucose Point of Care 142 mg/dl (65-105)
== END 2022-03-16 18:09 | DRG 638 ==
LOC: ANHED 21:27 → ANHIMU 21:38 → ANH3MEDSUR 03-10 16:07
PROVIDERS: Family Medicine; Admitting Provider Internal Medicine; Emergency Provider Emergency Medicine; PCP Internal Medicine; Visit Provider Internal Medicine
DX: E11.621 Type 2 diabetes mellitus with foot ulcer (principal); L03.116 Cellulitis of left lower limb; L97.429 Non-pressure chronic ulcer of left heel and midfoot with unspecified severity; Z68.44 Body mass index [BMI] 60.0-69.9, adult; I89.0 Lymphedema, not elsewhere classified; I10 Essential (primary) hypertension; E11.40 Type 2 diabetes mellitus with diabetic neuropathy, unspecified; E66.01 Morbid (severe) obesity due to excess calories; E55.9 Vitamin D deficiency, unspecified; E11.65 Type 2 diabetes mellitus with hyperglycemia; R07.9 Chest pain, unspecified; K44.9 Diaphragmatic hernia without obstruction or gangrene; F41.9 Anxiety disorder, unspecified; Z20.822 Contact with and (suspected) exposure to COVID-19
CPT/HCPCS: 36415; 71046; 80048; 80053; 82948; 83036; 83690; 84443; 84484; 85025; 85027; 85055; 85610; 85652; 85730; 86140; 87040; 87636; 93005; 96365; 96372; 97110; 97161; 97165; 97535; 99285; A9270; G0378; J1650; J1815; J2543

== ENCOUNTER 2022-11-27 15:51 | Emergency (ER) | payer OTHER, SELFPAY ==
[2022-11-27] VITALS (15 sets, daily range): BP systolic 139–189; BP diastolic 61–109; PULSE 84–128; RESP 14–30; TEMP 37.3; O2SAT 95–100
--- NOTE | ~2022-11-27 | XR_ITS ---
EXAMINATION: XR chest 1V portable Exam Date/Time: 11/27/2022 17:30 CDT HISTORY: covid +; HTN, Type 2 DM, non smoker Comparison: 03/09/2022. RESULT: Lines, tubes, and devices: None. Lungs and pleura: Streaky bibasilar scar/atelectasis, otherwise clear. Cardiomediastinal silhouette: Stable. Other: No acute osseous or upper abdominal finding. IMPRESSION: No acute cardiopulmonary process. Reviewed, dictated and finalized at location K.
[2022-11-27 16:12] LABS: Glucose Point of Care 138 mg/dl (65-105)
[2022-11-27 16:33] LABS: Strep Group A RT-PCR NOT DETECTED (Negative)
[2022-11-27 16:44] LABS: Influenza A QL RT-PCR Negative (Negative); Influenza B QL RT-PCR Negative (Negative); RSV RNA, RT-PCR Negative (Negative); SARS-CoV-2 RNA PCR Positive (Negative)
--- NOTE | 2022-11-27 19:02 | ED.GENADULT ---
HPI - General Adult General Chief complaint: Unspecified <Gabbi Shen PA-C - Last Filed: 11/28/22 02:32> Stated complaint: body aches <Gabbi Shen PA-C - Last Filed: 11/28/22 02:32> Time Seen by Provider: 11/27/22 17:41 <Gabbi Shen PA-C - Last Filed: 11/28/22 02:32> History of Present Illness HPI narrative: 57-year-old female with a history of hypertension and type 2 diabetes reports for evaluation for sore throat, body aches and generalized fatigue since yesterday. She is also reporting a frontal headache. Patient states her son has recently been diagnosed with flu, COVID and strep. She denies otalgia, congestion, vision changes, focal numbness or weakness, chest pain or shortness of breath, abdominal pain, nausea or vomiting, diarrhea, cough. Reports taking Tylenol 7 hours ago. States her highest temp at home has been 99.6. Patient also reports increased urinary frequency today, denies dysuria. States she is in between PCPs right now and has not had a refill on her metoprolol or glipizide in 2 weeks. She is scheduled with her new PCP on 12/25. <Gabbi Shen PA-C - Last Filed: 11/28/22 02:32> Related Data Allergies/adverse reactions: Allergies Allergy/AdvReac Type Severity Reaction Status Date / Time lisinopril Allergy Unknown lip Verified 11/27/22 15:58 swelling naproxen Allergy Unknown Hives Verified 11/27/22 15:58 prednisone Allergy Unknown Hives Verified 11/27/22 15:58 <Gabbi Shen PA-C - Last Filed: 11/28/22 02:32> Review of Systems Review of Systems: CONSTITUTIONAL: Denies fever, chills EYES: Denies visual changes, redness, or discharge. ENT: See HPI CARDIOVASCULAR: Denies chest pain, palpitations, or edema. RESPIRATORY: Denies cough or dyspnea. GASTROINTESTINAL: Denies abdominal pain, nausea, vomiting, or diarrhea. GENITOURINARY: Denies dysuria or hematuria. SKIN: Denies rash or itching. MUSCULOSKELETAL: Denies back pain, joint pain, or myalgia. NEUROLOGIC: See HPI PSYCHIATRIC: Denies anxiety or depression. <Gabbi Shen PA-C - Last Filed: 11/28/22 02:32> [facility] Past Medical History Medical History: Medical History Anxiety Body mass index [BMI] 60.0-69.9, adult Debility Diabetic peripheral neuropathy Elephantiasis nostras verrucosa bilateral Essential hypertension Hiatal hernia Left calcaneal fracture Type 2 diabetes mellitus Vitamin D deficiency <Gabbi Shen PA-C - Last Filed: 11/28/22 02:32> Surgical History Surgical History: Surgical History History of x2 Status post hysteroscopic ablation of endometrium (~2006) <Gabbi Shen PA-C - Last Filed: 11/28/22 02:32> Family History Family History: Family History Grandparent Family history of bronchitis Family history of coronary artery disease Mother Hypertension, Onset Age: 71 Family history of diabetes mellitus in first degree relative Patient's mother is in good health Family history of Alzheimer's disease, Onset Age: 71 Diabetes mellitus, Onset Age: 71 Father Family history unknown Other Asthma <Gabbi Shen PA-C - Last Filed: 11/28/22 02:32> Social History Social History: Social History Social History: Patient lives at home with her 2 children. She lists her aunt, Debbie, as her surrogate MDM. She wishes to be a Full Code. 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 She has a daughter who is 26 years old and a son who is 18 years old. She lives alone. Smoking status: Never smoker Second hand tobacco
--- NOTE | 2022-11-27 19:05 | ECG_ITS ---
Measurements Intervals [place] Rate: 97 P: 49 RI: 211 QRS: -1 QRSD: 101 T: 31 QT: 340 QTc: 432 Interpretive Statements SINUS RHYTHM WITH FIRST DEGREE AV BLOCK COMPARED TO ECG 03/09/2022 17:48:07 SINUS RHYTHM NOW PRESENT FIRST DEGREE AV BLOCK NOW PRESENT Electronically Signed On 11-28-2022 14:32:04 CDT by Alexi Pérez M.D.
[2022-11-27] MEDS: ACETAMINOPHEN 500 MG TABLET 1000 MG PO (19:07)
[2022-11-27] MEDS: METOPROLOL TARTRATE 50 MG TAB PO (19:07)
[2022-11-27 19:22] LABS: Appearance Urine Cloudy (Clear); Bacteria Urine None Seen /hpf; Bilirubin Urine Negative (Negative); Color Urine Yellow (Yellow); Glucose Urine UA Negative (Negative); Ketones Urine Negative (Negative); Leukocyte Esterase Ur Trace LEU/UL (Negative); Nitrate Urine Negative (Negative); Non Pathogenic Casts 0-2; Protein Urine 1+ mg/dL (Negative); Specific Grav Ur 1.017 (1.001-1.035); Squamous Epithelial Cell Urine None seen /hpf (Few); WBC Urine 0-5 /hpf
[2022-11-27 19:25] LABS: Add Urine Microscopic? YES
[2022-11-27 19:31] LABS: Glucose Point of Care 118 mg/dl (65-105)
== END 2022-11-27 20:48 | disposition home or self-care (01) ==
PROVIDERS: Emergency Medicine; Emergency Provider Physician Assistant; PCP Internal Medicine
DX: U07.1 COVID-19 (principal); I10 Essential (primary) hypertension; E11.42 Type 2 diabetes mellitus with diabetic polyneuropathy; E55.9 Vitamin D deficiency, unspecified; I89.0 Lymphedema, not elsewhere classified; F41.9 Anxiety disorder, unspecified; Z79.84 Long term (current) use of oral hypoglycemic drugs; I44.0 Atrioventricular block, first degree
CPT/HCPCS: 71045; 81001; 82948; 87637; 87651; 93005; 99283; A9270

== ENCOUNTER 2024-02-07 01:02 | Emergency (ER) | payer OTHER, MEDICAID, MEDICARE, SELFPAY ==
--- NOTE | ~2024-02-07 | XR_ITS ---
EXAMINATION: XR chest 1V portable DATE: 02/07/2024 01:47 INDICATION: Palpitations. Chest pain. TECHNIQUE: A single frontal view of the chest was obtained. COMPARISON: Chest single view 11/27/2022, CT abdomen and pelvis 06/11/2018 FINDINGS: There is no pneumonia, pleural effusion, or pneumothorax. The heart size is normal. IMPRESSION: 1. No acute cardiopulmonary disease. Reviewed, dictated and finalized at location A.
[2024-02-07 00:59] VITALS: BP 180/168; PULSE 114; RESP 19; TEMP 36.6; O2SAT 100
--- NOTE | 2024-02-07 01:07 | ECG_ITS ---
Test Date: 2024-02-07 01:07:47 Measurements Intervals [place] Rate: 98 P: 44 LA: 176 QRS: 0 QRSD: 94 T: 17 QT: 348 QTc: 445 Interpretive Statements SINUS RHYTHM POSSIBLE LEFT ATRIAL ENLARGEMENT [-0.1mV P WAVE IN V1/V2] LOW QRS VOLTAGE IN PRECORDIAL LEADS [QRS DEFLECTION < 1.0 mV IN CHEST LEADS] No previous ECG available for comparison Electronically Signed On 02-07-2024 09:43:41 CDT by Alexi Pérez M.D.
[2024-02-07 01:08] VITALS: O2SAT 99
[2024-02-07 01:25] LABS: Basophils Percent Auto 0.4 % (0.2-1.2); Eosinophils Absolute Auto 0.2 K/mm3 (0-0.3); Eosinophils Percent Auto 1.9 % (0-4.4); Hematocrit 43.6 % (37.0-47.0); Hemoglobin 13.5 g/dL (12.0-15.0); Immature Granulocyte Absolute 0.02 K/mm3 (0.00-0.031); Immature Granulocyte Percent A 0.2 % (0-0.5); Lymphocytes Absolute Auto 2.32 K/mm3 (0.9-3.2); Lymphocytes Percent Auto 27.4 % (18.3-44.2); Mean Corpuscular Hemoglobin 26.8 pg (26-34); Mean Corpuscular Volume 86.7 fl (80-100); Monocytes Absolute Auto 0.6 K/mm3 (0.1-0.6); Monocytes Percent Auto 7.3 % (2.6-8.5); Neutrophils Absolute Auto 5.3 K/mm3 (1.3-6.7); Neutrophils Percent Auto 62.8 % (45.5-73.1); Platelet Count Result 250 k/mm3 (150-375); Red Blood Count 5.03 M/mm3 (4.2-5.4); Red Cell Distribution Width 13.1 % (11.5-14.5); White Blood Count 8.5 K/mm3 (4.5-10.0)
[2024-02-07 01:34] LABS: INR 1.1; Prothrombin Time 14.6 Seconds (11.1-14.7)
[2024-02-07 01:35] LABS: Partial Thromboplastin Time 27.1 Seconds (22.3-36.8)
--- NOTE | 2024-02-07 03:09 | ED.CHESTPAIN ---
HPI - Chest Pain General Chief Complaint: Chest Pain Stated Complaint: chest pressure Time Seen by Provider: 02/07/24 01:12 History of Present Illness HPI narrative: Patient is a 58-year-old female who presents to the emergency department this evening complaining of indigestion. Patient states that she felt as though she had a lot a gas in her left upper stomach that was pushing up into her chest. She does admit that she takes monjaro which is known to cause some GI upset and bloating but wanted to get checked out to make sure nothing else was going on. She is currently denying any chest pain, any shortness of breath, any nausea, vomiting, or abdominal pain, denies any dysuria hematuria, any constipation or diarrhea, melena, hematochezia, fevers, chills. There are no additional modifying, alleviating, or precipitating factors at this time. Related Data Allergies Allergy/AdvReac Type Severity Reaction Status Date / Time lisinopril Allergy Unknown lip Verified 02/07/24 01:08 swelling naproxen Allergy Unknown Hives Verified 02/07/24 01:08 prednisone Allergy Unknown Hives Verified 02/07/24 01:08 Review of Systems Review of Systems: All systems are reviewed and are negative unless stated otherwise in the HPI. [facility] Past Medical History Medical History Anxiety Body mass index [BMI] 60.0-69.9, adult Debility Diabetic peripheral neuropathy Elephantiasis nostras verrucosa bilateral Essential hypertension Hiatal hernia Left calcaneal fracture Type 2 diabetes mellitus Vitamin D deficiency Surgical History Surgical History History of x2 Status post hysteroscopic ablation of endometrium (~2006) Family History Family History Grandparent Family history of bronchitis Family history of coronary artery disease Mother Hypertension, Onset Age: 71 Family history of diabetes mellitus in first degree relative Patient's mother is in good health Family history of Alzheimer's disease, Onset Age: 71 Diabetes mellitus, Onset Age: 71 Father Family history unknown Other Asthma Social History Social History Social History: Patient lives at home with her 2 children. She lists her aunt, Debbie, as her surrogate MDM. She wishes to be a Full Code. 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 She has a daughter who is 26 years old and a son who is 18 years old. She lives alone. Smoking status: Never smoker Second hand tobacco smoke exposure: No Alcohol intake: never Substance use: current Substance use type: does not use Lack of Transportation: YES Lack of Food: Never True Current Housing: I Have Housing Concerned About Future Housing: No Difficulty Paying Gas/Electric Bills: No Difficulty Paying for Meds: No Currently Unemployed: No Education: Grade School Difficulty w/ Childcare or Family Care: No Gender identity (if verbalized by the patient): Female Spiritual care concerns: No Agree to blood products: Yes Exam Narrative: General: Alert, awake, afebrile, in no acute distress, obese. HEENT: PERRL, no rhinorrhea, no post nasal drip, oropharynx clear. Neck: Trachea midline, no JVD, no lymphadenopathy. Cardiovascular: Regular rate and rhythm, no murmurs, rubs or gallops, no peripheral edema. Respiratory: Clear to auscultation bilaterally, no tachypnea, no wheezing, no rhonchi, no rubs, no respiratory distress. Abdomen: Soft, nontender, nondistended, no rebound, no guarding, no peritoneal signs. Musculoskeletal: No joint swelling or deformity, normal muscle tone. Skin: No rashes or petechia, no signs of infection. Neurological: Alert and oriented to person, place, and time. Follows all commands. No focal deficits, speech is clear and fluent. Course Vital Signs Vital signs: Vital Signs Temperature 97.8 F 02/07/24 00:59 Pulse Rate 114 H 02/07/24 00:59 Respiratory Rate 19 02/07/24 00:59 Blood Pressure 180/168 H 02/07/24 00:59 Pulse Oximetry 100 02/07/24 00:59 Oxygen Delivery Room Air 02/07/24 00:59 Temperature 97.8 F 02/07/24 00:59 Pulse Rate 83 02/07/24 06:59 Respiratory Rate 15 02/07/24 06:59 Blood Pressure 168/82 H 02/07/24 06:59 Pulse Oximetry 98 02/07/24 06:59 Oxygen Delivery Room Air 02/07/24 01:08 MDM - Chest Pain MDM Narrative Medical decision making narrative: The patient was evaluated by myself in the emergency department. History is obtained from patient who is an independent historian and physical exam was performed. External medical records were reviewed at this time. IV was established and pertinent tests were ordered. Patient was administered 20 mg of IV Versed at this time. EKG was obtained which revealed sinus rhythm rate of 98 beats per minute, no evidence of acute ischemia. EKG was independently interpreted by me and is currently pending official cardiology read. Laboratory results obtained revealing no acute process. Troponin negative. Imaging studies obtained included CXR which was independently interpreted by me revealing no acute cardiopulmonary process, which is pending final radiology interpretation. Differential diagnosis considerations include gastroenteritis, peptic ulcer disease, acid reflux, acute viral syndrome. Comorbidities impacting this visit include none. I have evaluated and discussed social determinants of health with the patient that could potentially impact subsequent diagnosis and treatment plans. On repeat assessment of the patient, reevaluation revealed that the patient is doing well and is in no acute distress. Patient symptoms have remained stable since she arrived to our emergency department. Repeat vital signs were all reviewed and noted to be stable. Differential diagnosis and treatment plan were discussed with the patient at bedside. Patient agrees with discussion and after shared medical decision making agrees with discharge. All questions were answered to the patient's satisfaction. Patient will follow up with her PCP in 3-5 days. Patient was provided with strict return precautions and instructed to return to the emergency department if any new or worsening symptoms develop. The patient was discharged in stable condition. Lab Data 02/07/24 01:19 02/07/24 03:09 Labs: Lab Results 02/07/24 02/07/24 02/07/24 Range/Units 01:19 03:09 06:09 WBC 8.5 (4.5-10.0) K/mm3 RBC 5.03 (4.2-5.4) M/mm3 Hgb 13.5 (12.0-15.0) g/dL Hct 43.6 (37.0-47.0) % MCV 86.7 (80-100) fl MCH 26.8 (26-34) pg MCHC 31.0 L (32-36) g/dl RDW 13.1 (11.5-14.5) % Plt Count 250 (150-375) k/mm3 MPV 11.0 H (7.4-10.4) fl Immature Gran % (Auto) 0.2 (0-0.5) % Neut % (Auto) 62.8 (45.5-73.1) % Lymph % (Auto) 27.4 (18.3-44.2) % Brooke % (Auto) 7.3 (2.6-8.5) % Eos % (Auto) 1.9 (0-4.4) % Baso % (Auto) 0.4 (0.2-1.2) % Lymph # (Auto) 2.32 (0.9-3.2) K/mm3 Brooke # (Auto) 0.6 (0.1-0.6) K/mm3 Eos # (Auto) 0.2 (0-0.3) K/mm3 Baso # (Auto) 0.0 (0.0-0.1) K/mm3 Abs Immat Gran (auto) 0.02 (0.00-0.031) K/mm3 Absolute Neuts (auto) 5.3 (1.3-6.7) K/mm3 Absolute Nucleated RBC 0.000 (0.0-0.012) K/mm3 Nucleated RBC % 0.0 (0.0-0.2) % PT 14.6 (11.1-14.7) Seconds INR 1.1 APTT 27.1 (22.3-36.8) Seconds Sodium 138 (137-145) mmol/L Potassium 4.2 (3.4-5.0) mmol/L Chloride 104 (98-107) mmol/L Carbon Dioxide 25 (22-30) mmol/L Anion Gap 9 (4-12) mmol/L BUN 12 (7-17) mg/dL Creatinine 0.40 L (0.7-1.0) mg/dL Estim Creat Clear Calc 241 ml/min Estimated GFR > 60 (59 - ) Glucose 171 H (65-110) mg/dL Calcium 8.9 (8.4-10.2) mg/dL Total Bilirubin 0.5 (0.2-1.3) mg/dL AST 18 (14-36) U/L ALT 8 (6-35) U/L Alkaline Phosphatase 64 (38-126) U/L Troponin I < 0.012 Cancelled (0.000-0.034) ng/mL Total Protein 8.0 (6.3-8.2) g/dL Albumin 4.0 (3.5-5.1) g/dL Lipase 20 L (23-300) U/L Discharge Plan Discharge Clinical Impression: Acid indigestion Patient Disposition: SNF Condition: Improved Instructions: Indigestion (ED) Additional Instructions: Please follow-up with your family doctor within the next 3-5 days. Return to the emergency department if any new or worsening symptoms develop. Prescriptions: No Action acetaminophen [Mapap (acetaminophen)] 325 mg Tablet 650 mg PO Q4H PRN (Reason: Mild Pain (1-3) Or Fever) Qty: 30 0RF Lac-Hydrin Five 5 % Lotion 1 applic topical Q12HR Qty: 60 0RF Silver-Sept 200 mcg/gram Gel 1 applic topical DAILY Qty: 60 0RF metoprolol tartrate 50 mg tablet 50 mg PO BID Qty: 30 0RF hydrochlorothiazide 25 mg tablet 25 mg PO DAILY Qty: 30 0RF metoprolol tartrate 50 mg tablet 50 mg PO BID Qty: 60 0RF sertraline 100 mg tablet 100 mg PO DAILY Qty: 30 0RF bisacodyl [Laxative (bisacodyl)] 5 mg Tablet,Delayed Release (Dr/Ec) 5 mg PO QAM Qty: 30 0RF pregabalin 100 mg Capsule 100 mg PO Q12HR Qty: 60 0RF enoxaparin [Lovenox] 40 mg/0.4 mL Syringe 40 mg subcut Q12HR Qty: 15 0RF glipizide 5 mg Tablet 5 mg PO BIDAC Qty: 60 0RF Follow-up/Referrals: Brett Porter MD [Physician] - 3 Days UNKNOWN,DOCTOR [Primary Care Provider] - Time of Disposition: 03:56
[2024-02-07 03:37] LABS: Alanine Aminotransferase 8 U/L (6-35); Alkaline Phosphatase 64 U/L (38-126); Anion Gap 9 mmol/L (4-12); Aspartate Amino Transferase 18 U/L (14-36); Bilirubin,Total 0.5 mg/dL (0.2-1.3); Blood Urea Nitrogen 12 mg/dL (7-17); Calcium 8.9 mg/dL (8.4-10.2); Carbon Dioxide 25 mmol/L (22-30); Chloride 104 mmol/L (98-107); Estimated CRCL calculation 241 ml/min; Estimated Glomerular Filt Rate > 60; Glucose 171 mg/dL (65-110); Lipase 20 U/L (23-300); Potassium 4.2 mmol/L (3.4-5.0); Sodium 138 mmol/L (137-145)
[2024-02-07 03:47] LABS: Troponin I < 0.012 ng/mL (0.000-0.034)
[2024-02-07] MEDS: FAMOTIDINE 20 MG/2 ML VIAL IV PUSH (04:35)
[2024-02-07 06:08] VITALS: BP 150/84; PULSE 82; RESP 17; O2SAT 99
[2024-02-07 06:59] VITALS: BP 168/82; PULSE 83; RESP 15; O2SAT 98
== END 2024-02-07 07:00 | disposition home or self-care (01) ==
PROVIDERS: Emergency Provider Emergency Medicine
DX: K30 Functional dyspepsia (principal); I10 Essential (primary) hypertension; E11.42 Type 2 diabetes mellitus with diabetic polyneuropathy; K44.9 Diaphragmatic hernia without obstruction or gangrene; E55.9 Vitamin D deficiency, unspecified; F41.9 Anxiety disorder, unspecified; Z79.85 Long-term (current) use of injectable non-insulin antidiabetic drugs; Z79.84 Long term (current) use of oral hypoglycemic drugs; Z79.899 Other long term (current) drug therapy; Z79.01 Long term (current) use of anticoagulants; R94.31 Abnormal electrocardiogram [ECG] [EKG]
CPT/HCPCS: 36415; 71045; 80053; 83690; 84484; 85025; 85610; 85730; 93005; 96374; 99284

== ENCOUNTER 2025-02-05 08:27 | Emergency (ER) | payer MEDICARE, MEDICAID, SELFPAY ==
--- NOTE | ~2025-02-05 | CT_ITS ---
EXAMINATION: CT brain wo reggie, 02/05/2025 9:05 CDT HISTORY: L vision loss COMPARISON: No comparisons available. Technique: Axial images obtained of the brain without contrast. One or more of the following dose reduction techniques were used: automated exposure control, adjustment of the mA and/or kV according to patient size, use of iterative reconstruction technique. Findings: No acute infarct or parenchymal hemorrhage. No abnormal mass or mass effect. No midline shift. No extra-axial fluid collections. No hydrocephalus. Mastoid air cells unremarkable. Sinuses and orbits unremarkable. No acute fracture. No significant facial or scalp soft tissue swelling evident. No radiopaque foreign body is seen. Impression: 1.No acute intracranial abnormality. Reviewed, dictated and finalized at location P. Impression: 1.No acute intracranial abnormality.
[2025-02-05 08:34] VITALS: PULSE 91; RESP 18; TEMP 37.3; O2SAT 100; O2SAT 99
--- NOTE | 2025-02-05 08:57 | ED_ITS ---
HPI - General Adult General Chief complaint: Neuro Symptoms/Deficit Stated complaint: vision issues Time Seen by Provider: 02/05/25 08:28 History of Present Illness HPI narrative: This is a 59-year-old female history of morbid obesity, lymphedema hypertension diabetes presenting with vision changes. Patient states she has had poor vision for quite some time but she is unable to leave her house due to her wait to see an supervisor treating and pumping. She felt her vision in her left eye became acutely worse last night. She now has very blurred vision in the left eye and can only see movement. She does not have any slurred speech, double vision, difficulty swallowing, weakness to any extremity. She did not have any trauma. She has no fevers. She has not seen an supervisor treating and pumping very long time and barriers include her morbid obesity making it very difficult for her to be perhaps. Related Data Allergies Allergy/AdvReac Type Severity Reaction Status Date / Time lisinopril Allergy Unknown lip Verified 02/05/25 08:45 swelling naproxen Allergy Unknown Hives Verified 02/05/25 08:45 prednisone Allergy Unknown Hives Verified 02/05/25 08:45 PMFSH Past Medical History Medical History Anxiety Body mass index [BMI] 60.0-69.9, adult Debility Diabetic peripheral neuropathy Elephantiasis nostras verrucosa bilateral Essential hypertension Hiatal hernia Left calcaneal fracture Type 2 diabetes mellitus Vitamin D deficiency Surgical History Surgical History History of x2 Status post hysteroscopic ablation of endometrium (~2006) Family History Family History Grandparent Family history of bronchitis Family history of coronary artery disease Mother Hypertension, Onset Age: 71 Family history of diabetes mellitus in first degree relative Patient's mother is in good health Family history of Alzheimer's disease, Onset Age: 71 Diabetes mellitus, Onset Age: 71 Father Family history unknown Other Asthma Social History Social History Social History: Patient lives at home with her 2 children. She lists her aunt, Debbie, as her surrogate MDM. She wishes to be a Full Code. 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 She has a daughter who is 26 years old and a son who is 18 years old. She lives alone. Smoking status: Never smoker Second hand tobacco smoke exposure: No Alcohol intake: never Substance use: current Substance use type: does not use Lack of Transportation: YES Lack of Food: Never True Current Housing: I Have Housing Concerned About Future Housing: No Difficulty Paying Gas/Electric Bills: No Difficulty Paying for Meds: No Currently Unemployed: No Education: Grade School Difficulty w/ Childcare or Family Care: No Gender identity (if verbalized by the patient): Female Spiritual care concerns: No Agree to blood products: Yes Exam Narrative: APPEARANCE: No apparent distress, morbidly obese Head: atraumatic. EYES: EOMI, no fluorescein uptake on eye exam, IOP 10 in the right eye, 16 in the left eye, ophthalmic ultrasound did not reveal any evidence of retinal detachment or material in the posterior eye. Visual acuity fingers in the right eye and movement in the left eye NOSE: Atraumatic NECK: Trachea midline RESPIRATORY: No increased rate of breathing CARDIOVASCULAR: RRR, ABDOMINAL: Non-distended MUSCULOSKELETAl: No obvious deformities NEURO: Alert. Cranial nerves 2-12 grossly intact. Moving 4/4 extremities NIH is 0 -patient is unable to lift her legs off the bed due to lymphedema and obesity. She is able to move her toes. She does not appear to have neurologic deficit. SKIN:: Warm, dry. Normal color PSYCHIATRIC: Normal affect Course Vital Signs Vital signs: Vital Signs Temperature 99.2 F 02/05/25 08:34 Pulse Rate 91 02/05/25 08:34 Respiratory Rate 18 02/05/25 08:34 Pulse Oximetry 99 02/05/25 08:34 Oxygen Delivery Room Air 02/05/25 08:34 Temperature 99.2 F 02/05/25 08:34 Pulse Rate 91 02/05/25 08:34 Respiratory Rate 18 02/05/25 08:34 Pulse Oximetry 100 02/05/25 08:34 Oxygen Delivery Room Air 02/05/25 08:34 Medical Decision Making MDM Narrative Medical decision making narrative: -Course: 59-year-old female presenting worsening vision in her left eye. Visual acuity shows movement only in the left eye and fingers in the right eye. Patient does not know what her baseline visual acuity is as she has a lot of difficulty getting to doctor's due to her weight. Fluorescein stain was negative. IOP is 16 in the left eye and 10 in the right eye. Point of care ultrasound did not reveal any retinal detachment or debris in the posterior chamber. Case was discussed with Dr. Manzanares-Ophthalmology at [facility] and patient will be transferred for ophthalmology evaluation. Patient is accepted by Dr. Bullock in the emergency department. -DDX includes but is not limited to: Retinal hemorrhage, retinal artery occlusion, retinal vein occlusion, retinal edema Vital Signs Vital Signs: Vital Signs Temperature 99.2 F 02/05/25 08:34 Pulse Rate 91 02/05/25 08:34 Respiratory Rate 18 02/05/25 08:34 Pulse Oximetry 99 02/05/25 08:34 Oxygen Delivery Room Air 02/05/25 08:34 Temperature 99.2 F 02/05/25 08:34 Pulse Rate 91 02/05/25 08:34 Respiratory Rate 18 02/05/25 08:34 Pulse Oximetry 100 02/05/25 08:34 Oxygen Delivery Room Air 02/05/25 08:34 Lab Data Labs: Lab Results 02/05/25 Range/Units 08:59 POC Capillary Glucose 106 H (65-105) mg/dl Discharge Plan Discharge Clinical Impression: Blurred vision Patient Disposition: Acute Care Hospital Condition: Stable Patient Language: Guyanese Prescriptions: No Action acetaminophen [Mapap (acetaminophen)] 325 mg Tablet 650 mg PO Q4H PRN (Reason: Mild Pain (1-3) Or Fever) Qty: 30 0RF Lac-Hydrin Five 5 % Lotion 1 applic topical Q12HR Qty: 60 0RF Silver-Sept 200 mcg/gram Gel 1 applic topical DAILY Qty: 60 0RF metoprolol tartrate 50 mg tablet 50 mg PO BID Qty: 30 0RF hydrochlorothiazide 25 mg tablet 25 mg PO DAILY Qty: 30 0RF metoprolol tartrate 50 mg tablet 50 mg PO BID Qty: 60 0RF sertraline 100 mg tablet 100 mg PO DAILY Qty: 30 0RF bisacodyl [Laxative (bisacodyl)] 5 mg Tablet,Delayed Release (Dr/Ec) 5 mg PO QAM Qty: 30 0RF pregabalin 100 mg Capsule 100 mg PO Q12HR Qty: 60 0RF enoxaparin [Lovenox] 40 mg/0.4 mL Syringe 40 mg subcut Q12HR Qty: 15 0RF glipizide 5 mg Tablet 5 mg PO BIDAC Qty: 60 0RF Follow-up/Referrals: UNKNOWN,DOCTOR [Non-Staff]
--- NOTE | 2025-02-05 09:55 | PC.NURSE ---
PT talking louldy on phone in room, airway intact, on monitor, GCS 15, NAD
--- NOTE | 2025-02-05 10:54 | PC.NURSE ---
D/t pts mobility restrictions, female external catheter was placed at this time. Pt vioded about 250 mL of urine upon placement.
[2025-02-05 10:59] VITALS: BP 161/75; PULSE 81; RESP 18; O2SAT 95
== END 2025-02-05 11:38 | disposition short-term general hospital (02) ==
PROVIDERS: Emergency Provider Emergency Medicine; PCP Internal Medicine
DX: H53.8 Other visual disturbances (principal); I89.0 Lymphedema, not elsewhere classified; I10 Essential (primary) hypertension; E11.42 Type 2 diabetes mellitus with diabetic polyneuropathy; E66.01 Morbid (severe) obesity due to excess calories; Z68.44 Body mass index [BMI] 60.0-69.9, adult; E55.9 Vitamin D deficiency, unspecified; Z79.899 Other long term (current) drug therapy; Z79.84 Long term (current) use of oral hypoglycemic drugs
CPT/HCPCS: 70450; 82948; 99285; A9270

== ENCOUNTER 2025-04-14 09:46 | Emergency (ER) | payer MEDICARE, MEDICAID, SELFPAY ==
[2025-04-14 09:46] VITALS: BP 160/103; PULSE 94; RESP 20; TEMP 36.6; O2SAT 100
--- NOTE | 2025-04-14 10:11 | ED.LOWEXIN ---
HPI - Extremity Injury (Lower) General Chief Complaint: Extremity Injury, Lower <Hannah Razo PA-C - Last Filed: 04/14/25 19:27> Stated Complaint: LLE lac <Hannah Razo PA-C - Last Filed: 04/14/25 19:27> Source: patient <Hannah Razo PA-C - Last Filed: 04/14/25 19:27> Mode of arrival: EMS <JESÚS Chow Last Filed: 04/14/25 19:27> Limitations: no limitations <JESÚS Chow Last Filed: 04/14/25 19:27> History of Present Illness HPI Narrative: Patient is a 59-year-old female who presents the ED via EMS with report of a laceration to her left lower leg. Patient has history of lymphedema and elephantiasis nostras verrucosa of bilateral lower extremities. Is wheelchair-bound at baseline. Recently received a new electric wheelchair. Was getting in to a medical transportation van today to go to an eye doctor appointment and sustained a large laceration to her left lower leg getting into the van. Patient reports slight pain associated with this, but does have history of peripheral neuropathy. Tetanus is unknown. <Hannah Razo PA-C - Last Filed: 04/14/25 19:27> Related Data Allergies/Adverse Reactions: Allergies Allergy/AdvReac Type Severity Reaction Status Date / Time lisinopril Allergy Unknown lip Verified 04/14/25 10:15 swelling naproxen Allergy Unknown Hives Verified 04/14/25 10:15 prednisone Allergy Unknown Hives Verified 04/14/25 10:15 <Hannah Razo PA-C - Last Filed: 04/14/25 19:27> Review of Systems Review of Systems: All systems reviewed & are unremarkable except as noted in HPI. <JESÚS Chow Last Filed: 04/14/25 19:27> All systems reviewed & are unremarkable except as noted in HPI and below <JESÚS Chow Last Filed: 04/14/25 19:27> PMFSH Past Medical History Medical History: Medical History Debility Elephantiasis nostras verrucosa bilateral Diabetic peripheral neuropathy Essential hypertension Body mass index [BMI] 60.0-69.9, adult Type 2 diabetes mellitus Anxiety Vitamin D deficiency Left calcaneal fracture Hiatal hernia <Hannah Razo PA-C - Last Filed: 04/14/25 19:27> Surgical History Surgical History: Surgical History Status post hysteroscopic ablation of endometrium (~2006) History of x2 <Hannah Razo PA-C - Last Filed: 04/14/25 19:27> Family History Family History: Family History Grandparent Family history of bronchitis Family history of coronary artery disease Mother Hypertension, Onset Age: 71 Family history of diabetes mellitus in first degree relative Patient's mother is in good health Family history of Alzheimer's disease, Onset Age: 71 Diabetes mellitus, Onset Age: 71 Father Family history unknown Other Asthma <Hannah Razo PA-C - Last Filed: 04/14/25 19:27> Social History Social History: Social History Social History: Patient lives at home with her 2 children. She lists her aunt, Debbie, as her surrogate MDM. She wishes to be a Full Code. 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 She has a daughter who is 26 years old and a son who is 18 years old. She lives alone. Smoking status: Never smoker Second hand tobacco smoke exposure: No Alcohol intake: never Substance use: current Substance use type: does not use Lack of Transportation: YES Lack of Food: Never True Current Housing: I Have Housing Concerned About Future Housing: No Difficulty Paying Gas/Electric Bills: No Difficulty Paying for Meds: No Currently Unemployed: No Education: Grade School Difficulty w/ Childcare or Family Care: No Gender identity (if verbalized by the patient): Female Spiritual care concerns: No Agree to blood products: Yes <Hannah Razo PA-C - Last Filed: 04/14/25 19:27> Exam Narrative: GENERAL: Well appearing, morbidly obese with BMI of 74.8, non-toxic, in no acute distress. HEAD: Normocephalic, atraumatic. RESPIRATORY: Airway patent, respirations nonlabored. CARDIOVASCULAR: Regular rate and rhythm MUSCULOSKELETAL: Moves all extremities. Diffuse lymphedema and elephantiasis changes to BLE with extensive thick/scaling/calloused/hypertrophied/woody skin. Slight foul odor to legs tian. Approx 9cm laceration to L lateral lower leg with small area of active bleeding along proximal laceration. Mild focal TTP SKIN: Warm, dry, normal color. NEURO: A&O X3. Speech clear. No ataxic movements. PSYCHIATRIC: Appropriate mood and affect. Normal interaction. <Hannah aRzo PA-C - Last Filed: 04/14/25 19:27> Course BOX BRANDER/PA Physician Supervision This visit was performed by both a physician and an APC. I performed all aspects of the MDM as documented. <Efrain Alexandre MD - Last Filed: 04/14/25 18:38> Vital Signs Vital signs: Vital Signs Temperature 97.9 F 04/14/25 09:46 Pulse Rate 94 04/14/25 09:46 Respiratory Rate 20 04/14/25 09:46 Blood Pressure 160/103 H 04/14/25 09:46 Pulse Oximetry 100 04/14/25 09:46 Temperature 97.9 F 04/14/25 09:46 Pulse Rate 89 04/14/25 16:08 Respiratory Rate 20 04/14/25 16:08 Blood Pressure 188/74 H 04/14/25 16:08 Pulse Oximetry 100 04/14/25 16:08 <Hannah Razo PA-C - Last Filed: 04/14/25 19:27> Vital Signs Temperature 97.9 F 04/14/25 09:46 Pulse Rate 94 04/14/25 09:46 Respiratory Rate 20 04/14/25 09:46 Blood Pressure 160/103 H 04/14/25 09:46 Pulse Oximetry 100 04/14/25 09:46 Temperature 97.9 F 04/14/25 09:46 Pulse Rate 89 04/14/25 16:08 Respiratory Rate 20 04/14/25 16:08 Blood Pressure 188/74 H 04/14/25 16:08 Pulse Oximetry 100 04/14/25 16:08 <Efrain Alexandre MD - Last Filed: 04/14/25 18:38> Procedures Laceration Laceration 1: Date: 04/14/25 <Hannah Razo PA-C - Last Filed: 04/14/25 19:27> Time: 10:30 <Hannah Razo PA-C - Last Filed: 04/14/25 19:27> Site: lower extremity <JESÚS Chow Last Filed: 04/14/25 19:27> Side (If applicable): left <JESÚS Chow Last Filed: 04/14/25 19:27> Size (cm): 9 <Hannah Razo PA-C - Last Filed: 04/14/25 19:27> Description: linear <JESÚS Chow Last Filed: 04/14/25 19:27> Depth: simple, single layer <JESÚS Chow Last Filed: 04/14/25 19:27> Local Anesthetic: lidocaine 1% and with epi <JESÚS Chow Last Filed: 04/14/25 19:27> Amount of anesthesia used (mL): 15 <JESÚS Chow Last Filed: 04/14/25 19:27> Pre-repair: wound explored, irrigated, irrigated extensively and minor debridement <JESÚS Chow Last Filed: 04/14/25 19:27> ====== Skin Level ======: Skin layer closed with: nylon <JESÚS Chow Last Filed: 04/14/25 19:27> Size (cm): 3-0 <Hannah Razo PA-C - Last Filed: 04/14/25 19:27> Number of sutures: 12 <Hannah Razo PA-C - Last Filed: 04/14/25 19:27> Technique: simple, interrupted <Hannah Razo PA-C - Last Filed: 04/14/25 19:27> ====== Subcutaneous Layer ======: ====== Muscle Layer ======: ====== Tendon Layer ======: MDM MDM Narrative Medical decision making narrative: Laceration was thoroughly irrigated and repaired without complications. Did require some minor debridement of thick scaly skin. Tetanus updated in the ED Will place patient on prophylactic course of antibiotics to prevent infection. Given 1st dose in the ED. Wound was bandaged. Patient safe for discharge home. Advised close follow-up with PCP for wound check and suture removal. Given strict return precautions. Discharged in stable condition. <Hannah Razo PA-C - Last Filed: 04/14/25 19:27> Differential Diagnosis Differential Diagnosis: Laceration, hematoma, fracture <Efrain Alexandre MD - Last Filed: 04/14/25 18:38> Medical Records I have reviewed the following patient records and this information was taken into consideration when formulating the assessment and plan.: previous labs, previous ER visits, previous hospitalizations and previous clinic visits <Hannah Razo PA-C - Last Filed: 04/14/25 19:27> Discharge Plan Discharge Clinical Impression: Lymphedema of both lower extremities Laceration of left lower leg Qualifiers: Encounter type: initial encounter Qualified Code(s): S81.812A - Laceration without foreign body, left lower leg, initial encounter <JESÚS Chow Last Filed: 04/14/25 19:27> Patient Disposition: Home <Hannah Razo PA-C - Last Filed: 04/14/25 19:27> Condition: Stable <JESÚS Chow Last Filed: 04/14/25 19:27> Instructions: Antibiotic Form, Care For Your Stitches (ED), Laceration (ED) <Hannah Razo PA-C - Last Filed: 04/14/25 19:27> Additional Instructions: Take antibiotics as prescribed for protection against infection. Follow up with your PCP for wound check/suture removal in 10 to 14 days. Change bandage daily or anytime visibly soiled. Return to the ED if you experience uncontrolled bleeding, severe pain, recurrent injury, fever, chills, pus-like drainage, or redness/swelling/warmth surrounding the wound, as these could be signs of an infection. <JESÚS Chow Last Filed: 04/14/25 19:27> Patient Language: Croatian <JESÚS Chow Last Filed: 04/14/25 19:27> Prescriptions: New cephalexin 500 mg capsule 500 mg PO Q12H 7 Days Qty: 14 0RF No Action acetaminophen [Mapap (acetaminophen)] 325 mg Tablet 650 mg PO Q4H PRN (Reason: Mild Pain (1-3) Or Fever) Qty: 30 0RF Lac-Hydrin Five 5 % Lotion 1 applic topical Q12HR Qty: 60 0RF Silver-Sept 200 mcg/gram Gel 1 applic topical DAILY Qty: 60 0RF metoprolol tartrate 50 mg tablet 50 mg PO BID Qty: 30 0RF hydrochlorothiazide 25 mg tablet 25 mg PO DAILY Qty: 30 0RF metoprolol tartrate 50 mg tablet 50 mg PO BID Qty: 60 0RF sertraline 100 mg tablet 100 mg PO DAILY Qty: 30 0RF bisacodyl [Laxative (bisacodyl)] 5 mg Tablet,Delayed Release (Dr/Ec) 5 mg PO QAM Qty: 30 0RF pregabalin 100 mg Capsule 100 mg PO Q12HR Qty: 60 0RF enoxaparin [Lovenox] 40 mg/0.4 mL Syringe 40 mg subcut Q12HR Qty: 15 0RF glipizide 5 mg Tablet 5 mg PO BIDAC Qty: 60 0RF <JESÚS Chow Last Filed: 04/14/25 19:27> Follow-up/Referrals: GunjanStephanie MD [Primary Care Provider, Unknown] <Hannah Razo PA-C - Last Filed: 04/14/25 19:27> Time of Disposition: 11:09 <Hannah Razo PA-C - Last Filed: 04/14/25 19:27> 11:09 <Efrain Alexandre MD - Last Filed: 04/14/25 18:38>
[2025-04-14] MEDS: TETANUS,DIPHTHERIA,AC PERTUSSIS ADULT (0.5 ML) BOOSTRIX IM (10:42)
--- OUTSIDE RECORDS SUMMARY | 2025-04-14 11:06 | XMS_ITS | Clinical Summary ---
Author Organization [facility] Address [address] [place] [address] Care Team Providers Care Trichologist Name Role Phone Stephanie Hollins MD Primary Care Provider [phone] Allergies Active Allergy Reactions Criticality Noted Date Comments Lisinopril Swelling 04/01/2022 Metformin Diarrhea 01/31/2023 Naproxen Hives 04/01/2022 Prednisone Itching 04/01/2022 Medications acetaminophen (TYLENOL) 325 MG tabletIndications :Pain Take 2 tablets (650 mg total) by mouth every 4 (four) hours as needed. Indications: Pain 04/01/20 22 Active Lancets MiscIndications:T ype 2 Diabetes Mellitus Use daily to check fasting blood sugar. 200 each 11 02/01/20 23 Active Blood Glucose Monitoring Suppl (ONE TOUCH ULTRA 2) w/Device KitIndications:Ty pe 2 Diabetes Mellitus Use daily to check fasging blood sugar 1 kit 02/01/20 23 Active Emollient (AQUAPHOR) OintmentIndicatio ns:Dry Skin Apply ointment to bilateral lower extremities twice daily and as needed for dry skin/lymphedema . 396 g 2 10/03/19 24 Active WHEELCHAIR MOTORIZED, DME,Indications:O ther abnormalities of gait and mobility,Unsteadi ness on feet,Morbid (severe) obesity due to excess calories (CMS/HCC) 1 Device by Does not apply route daily. 1 Device 11/02/19 24 Active Glucose Blood test stripIndications: Type 2 Diabetes Mellitus Indications: Type 2 Diabetes Use daily to check fasting blood sugar 200 strip 11 08/15/19 25 Active HOSPITAL BED BARIATRIC, DME,Indications:L ymphedema,At high risk for falls,Morbid (severe) obesity due to excess calories ([facility]) 1 Device by Does not apply route daily. 1 Device 01/06/20 25 Active metoprolol tartrate (LOPRESSOR) 50 MG tabletIndications :Hypertension Take 1 tablet (50 mg total) by mouth 2 (two) times daily. Indications: High Blood Pressure 180 tablet 1 03/27/20 25 Active hydroCHLOROthiazi de (HYDRODIURIL) 25 MG tabletIndications :Diuresis Take 1 tablet (25 mg total) by mouth every morning. Indications: Increase in the Amount of Urine Produced 90 tablet 1 03/27/20 25 Active glipiZIDE (GLUCOTROL) 5 MG tabletIndications :Type 2 diabetes mellitus with hyperglycemia, without long-term current use of insulin ([facility]) Take 1 tablet (5 mg total) by mouth every morning before breakfast. 90 tablet 03/27/20 25 Active omeprazole (PRILOSEC) 40 MG capsuleIndication s:GERD Take 1 capsule (40 mg total) by mouth daily as needed. Indications: GERD 90 capsule 1 03/27/20 25 Active ondansetron (ZOFRAN) 4 MG tabletIndications :Nausea Take 1 tablet (4 mg total) by mouth every 8 (eight) hours as needed. Indications: Nausea 30 tablet 03/27/20 25 Active tirzepatide (MOUNJARO) 2.5 MG/0.5ML injectionIndicati ons:Diabetes Mellitus Inject 2.5 mg into the skin every 7 days. Indications: Diabetes 2 mL 2 03/27/20 25 Active pregabalin (LYRICA) 100 MG capsuleIndication s:Neuropathy Take 1 capsule (100 mg total) by mouth 2 (two) times daily. Indications: Nerve Disease 90 capsule 1 03/27/20 25 Active rosuvastatin (CRESTOR) 10 MG tabletIndications :Type 2 diabetes mellitus with diabetic neuropathy, without long-term current use of insulin ([facility]) Take 1 tablet (10 mg total) by mouth nightly at bedtime. 90 tablet 1 03/27/20 25 Active ondansetron (ZOFRAN) 4 MG tabletIndications :Nausea Take 1 tablet (4 mg total) by mouth every 8 (eight) hours as needed. 30 tablet 06/19/19 025 Discontin ued(Reord er) traMADol (ULTRAM) 50 MG tabletIndications :Chronic Pain Take 1 tablet (50 mg total) by mouth daily as needed for Pain. Indications: Chronic Pain 10 tablet 06/19/19 025 Discontin ued(Thera py completed ) hydroCHLOROthiazi de (HYDRODIURIL) 25 MG tabletIndications :Diuresis Take 1 tablet (25 mg total) by mouth every morning. Indications: Increase in the Amount of Urine Produced 90 tablet 1 01/06/20 025 Discontin ued(Reord er) metoprolol tartrate (LOPRESSOR) 50 MG tabletIndications :Hypertension Take 1 tablet (50 mg total) by mouth 2 (two) times daily. Indications: High Blood Pressure 180 tablet 1 01/06/20 025 Discontin ued(Reord er) omeprazole (PRILOSEC) 40 MG capsuleIndication s:GERD Take 1 capsule (40 mg total) by mouth daily as needed. Indications: GERD 90 capsule 1 01/06/20 025 Discontin ued(Reord er) pregabalin (LYRICA) 100 MG capsuleIndication s:Neuropathy Take 1 capsule (100 mg total) by mouth 2 (two) times daily. Indications: Nerve Disease 90 capsule 1 01/06/20 025 Discontin ued(Reord er) rosuvastatin (CRESTOR) 10 MG tabletIndications :Type 2 diabetes mellitus with diabetic neuropathy, without long-term current use of insulin ([facility]) Take 1 tablet (10 mg total) by mouth nightly at bedtime. 90 tablet 1 01/06/20 025 Discontin ued(Reord er) tirzepatide (MOUNJARO) 2.5 MG/0.5ML injectionIndicati ons:Diabetes Mellitus Inject 2.5 mg into the skin every 7 days. Indications: Diabetes 2 mL 2 01/06/20 025 Discontin ued(Reord er) Active Problems Problem Noted Date Diagnosed Date Morbid (severe) obesity due to excess calories 0 09/26/2023 Depression, unspecified 04/27/2022 Other abnormalities of gait and mobility 022 Anxiety disorder, unspecified 04/01/2022 Other obesity due to excess calories 04/01/2022 Diaphragmatic hernia without obstruction or gang angela 04/01/2022 Essential (primary) hypertension 04/01/2022 Lymphedema, not elsewhere classified 04/01/2022 Muscle weakness (generalized) 04/01/2022 Other malaise 04/01/2022 Type 2 diabetes mellitus wit h diabetic neuropathy, unspecified 04/01/2022 Type 2 diabetes mellitus with hyperglycemia 03/16 Unspecified open wound, unsp ecified foot, subsequent encounter 04/01/2022 Unsteadiness on feet 04/01/2022 Encounters Date Type Department Care Team Description 03/27/2025 1:20 PM FIELD REPRESENTATIVE Telemedicine [place] [address] [facility] [address] [place] [address] Stephanie Hollins MD Follow Up (Chronic medical issues) 03/27/2025 Telephone [place] [address] [facility] [address] [place] [address] Stephanie Hollins MD Follow Up Call 03/27/2025 Travel 03/18/2025 Telephone [place] [address] [facility] [address] [place] [address] Stephanie Hollins MD Information 03/16/2025 Telephone [place] [address] [facility] [address] [place] [address] Stephanie Hollins MD Forms 03/02/2025 Telephone [place] [address] [facility] [address] [place] [address] Stephanie Hollins MD Reschedule 02/09/2025 Telephone [place] [address] [facility] [address] [place] [address] Stephanie Hollins MD Appointment Request 02/06/2025 [facility] [address] [place] [address] Stephanie Hollins MD Information 02/05/2025 Scan HEALTH INFO SRVCS Scanned, Doc [facility] 02/05/2025 Telephone [facility] Multispecialty Care - [address] [place] [address] Stephanie Hollins MD Concerns from Last 3 Months Immunizations Immunization Administration Dates Next Due Tdap (Adacel) 01/31/2023 Family History Medical History Relation Comments Alzheimer's disease Father Alzheimer's disease Mother Hypertension Mother Relation Status Comments Father Mother Social History Tobacco Use Types Packs/Day Years Used Date Smoking Tobacco: Never Smokeless Tobacco: Never Tobacco Cessation:Counseling Given: Yes Comments:Counseled by Dr. Hollins. Alcohol Use Standard Drinks/Week Comments Never 0 (1 standard drink = 0.6 oz pur e alcohol) OASIS D0700: Social Isolation Answer Da te Recorded Frequency of experiencing loneliness or isolatio n Never 11/23/2023 OASIS A1250: Transportation Answer Date Recorded Lack of Transportation (Medical) Yes 11/23/2023 Lack of Transportation (Non-Medical) No 11/23/2023 Patient Unable or Declines to Respond No 11/23/2023 OASIS B1300: Health Literacy Answer Luis e Recorded Frequency of needing help to read materials from doctor or pharmacy Never 11/23/2023 PHQ-2 Answer Date Recorded Patient Health Questionnaire-2 Score 1 01/05/2025 Comments No Sex and Gender Information Value Date Recorded Sex Assigned at Not on file Legal Sex Female 11:26 AM FIELD REPRESENTATIVE Gender Identity Not on file Sexual Orientation Not on file Last Filed Vital Signs Vital Sign Reading Time Taken Comments Blood Pressure 128/82 08/11/2024 11:18 AM CDT Pulse 80 11/12/2023 4:25 PM CDT Temperature 36.7 C (98 F) 11/12/2023 4:25 PM CDT Respiratory Rate 20 11/12/2023 4:25 PM CDT Oxygen Saturation 98% 11/12/2023 4:25 PM CDT Inhaled Oxygen Concentration - - Weight 125.2 kg (276 lb) 03/27/2025 1:17 PM FIELD REPRESENTATIVE Height 170.2 cm (5' 7) 10/03/2023 10:30 AM CDT Body Mass Index 43.23 10/03/2023 10:30 AM CDT Plan of Treatment Upcoming Encounters Date Type Department Care Team (Late st Contact Info) Description 08/07/2025 1:40 PM CDT Office Visit [facility] Multispecialty Care - [place] [address] [place] [address] [address] [place] [address] Stephanie Hollins MD [address] [facility] [address] [place] [address] Health Maintenance Due Date Last Done Comments Cervical Cancer Screening Pa p Smear (Age 30 to 64) Every 3 Years 1967 Colorectal Cancer Screening Colonoscopy (10 Years) 1967 Kidney Health Evaluation 1967 Diabetes: Retinopathy Eye Exam 09/26/1985 Hepatitis B Vaccines (1 of 3 - 19+ 3-dose series) 09/26/1986 Pneumococcal Vaccine: 50+ Years (1 of 2 - PCV) 09/26/1986 Cervical Cancer Screening Pa p with HPV Testing (Age 30 to 64) Every 5 Years 09/26/1997 Cervical Cancer Screening wi th HPV 09/26/1997 Mammogram Screening 2007 Zoster Vaccines (1 of 2) 09/26/2017 Hemoglobin A1C 04/08/2024 10/08/2023, 04/17/2023, 01/31/2023 Lipid Panel 10/07/2024 10/08/2023, 01/31/2023 COVID-19 Vaccine (1 - 2024-2 6 season) 2024 Influenza Adult (#1) 2025 Annual Physical 03/31/2025 03/31/2024, 01/31/2023 DTaP, Tdap and Td Vaccines ( 2 - Td or Tdap) 01/31/2033 01/31/2023 Hepatitis C Completed 01/31/2023 PHQ-2 (Physician [place]) Completed 01/05/2025 Hepatitis A Vaccines Aged Out No long er eligible based on patient's age to complete this topic Meningococcal B Vaccine Aged Out No l onger eligible based on patient's age to complete this topic Meningococcal Vaccine Aged Out No yessenia raymond eligible based on patient's age to complete this topic RSV Immunizations Under 20 Months Aged Out No longer eligible b ased on patient's age to complete this topic Procedures Procedure Name Priority Date/Time Associated Diagnosis Comments LIPID PANEL Routine 10/08/2023 12:00 PM CDT Morbid obesity Lymphedema HEMOGLOBIN, GLYCOSYLATED Routine 10/08/2023 12:00 PM CDT Morbid obesity Lymphedema Diabetes mellitus HEPATITIS C ANTIBODY Routine 01/31/2023 11:29 AM CDT Annual physical exam Establishing care with new doctor, encounter for General medical exam Encounter for hepatitis C screening test for low risk patient from Last 3 Months or Most Recently Relevant to Health Maintenance Results * (ABNORMAL) HEMOGLOBIN, GLYCOSYLATED (10/08/2023 12:00 PM CDT) HGB A1C 6.0(H) <5.7 % 10/08/2023 4:35 PM CDT [facility] Comment: INCREASED RISK OF DIABETES <5.7% NON-DIABETES 5.7-6.4% INCREASED RISK FOR FUTURE DIABETES > OR = 6.5 CONSISTENT WITH DIABETES STANDARDS OF MEDICAL CARE IN DIABETES-2010 DIABETES CARE, 33(SUPP 1): S1-S61,2010 ESTIMATED AVG GLUCOSE 126 mg/dL 10/08/2023 4:35 PM CDT [facility] 10/08/2023 12:0 0 PM CDT Stephanie Hollins MD LABORATORY Final Result [facility] [address] [place] [address], * LIPID PANEL (10/08/2023 12:00 PM CDT) CHOLESTEROL 155 <200.0 MG/DL 10/08/2023 4:17 PM CDT [facility] TRIGLYCERIDES 59 <150 MG/DL 10/08/2023 4:17 PM CDT [facility] HDL 58 >40.0 MG/DL 10/08/2023 4:17 PM CDT [facility] LDL (CALCULATED) 85 <100 MG/DL 10/08/19 4:17 PM CDT [facility] NON HDL CHOLESTEROL 97 <130 MG/DL 10/07 4:17 PM CDT [facility] CHOL/HDL RATIO 2.7 0.0 - 4.5 10/08/2023 4:17 PM CDT [facility] VLDL CALCULATION 12 5 - 55 MG/DL 10/08/2023 4:17 PM CDT [facility] LIPID INTERPRETATION 10/08/2023 4:17 PM CDT [facility] Comment: NIH CONCENSUS REPORT RECOMMENDATIONS: ADULT CHILD LOW RISK: CHOLESTEROL <200 <170 TRIGLYCERIDE <150 --- HDL >=60 --- LDL <100 <110 BORDERLINE: CHOLESTEROL 200-239 170-199 TRIGLYCERIDE 150-199 --- HDL 40-59 --- LDL 100-159 110-129 HIGH RISK: CHOLESTEROL >=240 >=200 TRIGLYCERIDE >=200 --- HDL <40 --- LDL >=160 >=130 10/08/2023 12:0 0 PM CDT Stephanie Hollins MD LABORATORY Final Result [facility] [address] [place] [address], * HEPATITIS C ANTIBODY (01/31/2023 11:29 AM CDT) HEPATITIS C AB NON-REACTI VE NON-REACT VENUS 01/31/2023 9:49 PM CDT [facility] Comment: ANTIBODIES TO HCV NOT DETECTED. DOES NOT EXCLUDE THE POSSIBILITY OF EXPOSURE TO HCV. 01/31/2023 11:2 9 AM CDT Stephanie Hollins MD LABORATORY Final Result [facility] [address] [place] [address], [place] [phone] [id number] from Last 3 Months or Most Recently Relevant to Health Maintenance Insurance MEDICAID [employer] Advance Directives * Full Code (Latest Code Status on File) Date Activated Date Inactivated Comments 10/03/2023 11:48 AM Care Teams Trichologist Relationship Specialty Start Date End Date Stephanie Hollins MD [address] [facility] [address] [place] [id number] PCP - General INTERNAL MEDICINE 06/26/22
--- OUTSIDE RECORDS SUMMARY | 2025-04-14 11:06 | XMS_ITS | Encounter Summary ---
Author Organization [facility] Address [address] [place] [address] Care Team Providers Care Programming Intern Name Role Phone Stephanie Hollins MD Primary Care Provider [phone] Reason for Visit * Reason Onset Date Comments Follow Up Call 03/27/2025 Encounter Details Date Type Department Care Team ([facility] st Contact Info) Description 03/27/2025 Telephone [facility] Medical [facility] Multispecialty Care [place] [address] [address] [place], [place] [id number] [place] [address] [place] [address] [address] [place] [address] Follow Up Call Social History Tobacco Use Types Packs/Day Years Used Date Smoking Tobacco: Never Smokeless Tobacco: Never Comments:Counseled by Dr. Alysia chance. Alcohol Use Standard Drinks/Week Comments Never 0 [...] on file Legal Sex Female 11:26 AM CONTROL SYSTEMS DEVELOPER Gender Identity Not on file Sexual Orientation Not on file documented as of this encounter Progress Notes * Nelly Rios LPN - 04/13/2025 11:52 AM CST Message left with Dulce Maria to call me back and let me know where this stands. ROL SYSTEMS DEVELOPER * Nelly Rios LPN - 04/01/2025 10:05 AM CST I called Dulce Maria and she says that they are suppose to be sending something. It was a little vague. Anyway I called [employer] and they state that they mailed the form back to Dulce Maria yesterday (03/31) because it was missing an emergency contact and a second medical providers signature. I will follow up again in a few days to make sure she receives it and gets it back to us. ROL SYSTEMS DEVELOPER * Nelly Rios LPN - 03/27/2025 2:55 PM CST Patient is aware. She mentions that something was suppose to be mailed to us. She said she was going to call someone and have it to us Sunday. ROL SYSTEMS DEVELOPER * Stephanie Hollins MD - 03/27/2025 1:37 PM CST Nelly can you please follow up on patient [employer] form again. Call the patient to verify so she can get her rides. ROL SYSTEMS DEVELOPER documented in this encounter Plan of Treatment Upcoming Encounters Date Type Department Care Team (Late st Contact Info) Description 08/07/2025 1:40 PM CDT Office Visit [facility] Medical [facility] Multispecialty Care - [address] [place] [address] Stephanie Hollins MD [address] [address] documented as of this encounter Visit Diagnoses Not on filedocumented in this encounter Additional Health Concerns Assessment Noted Time PHQ-9 Depression Total Score: 4 01/06/20 25 1:08 PM CDT documented as of this encounter Care Teams Programming Intern Relationship Specialty Start Date End Date Stephanie Hollins MD [address] [address] PCP - General INTERNAL MEDICINE 06/26/22 documented as of this encounter
[2025-04-14] MEDS: CEPHALEXIN 500 MG CAPSULE PO (11:14)
[2025-04-14 16:08] VITALS: BP 188/74; PULSE 89; RESP 20; O2SAT 100
== END 2025-04-14 16:33 | disposition home or self-care (01) ==
PROVIDERS: Emergency Provider Physician Assistant; PCP Internal Medicine
DX: S81.812A Laceration without foreign body, left lower leg, initial encounter (principal); Z23 Encounter for immunization; I89.0 Lymphedema, not elsewhere classified; E11.42 Type 2 diabetes mellitus with diabetic polyneuropathy; E55.9 Vitamin D deficiency, unspecified; E66.01 Morbid (severe) obesity due to excess calories; Z68.45 Body mass index [BMI] 70 or greater, adult; K44.9 Diaphragmatic hernia without obstruction or gangrene; F41.9 Anxiety disorder, unspecified; Z99.3 Dependence on wheelchair; Z79.84 Long term (current) use of oral hypoglycemic drugs; Z79.899 Other long term (current) drug therapy; Z79.01 Long term (current) use of anticoagulants; W26.8XXA Contact with other sharp object(s), not elsewhere classified, initial encounter
CPT/HCPCS: 12004; 90471; 90715; 99283; A9270